=== PATIENT | female | born 1995 | race Caucasian/White ===

== ENCOUNTER 2022-08-05 09:52 | Outpatient (CLI) | payer OTHER, SELFPAY ==
[2022-08-05 13:50] LABS: Iron* 86 ug/dL (37-170)
[2022-08-05 14:00] LABS: Percent Iron Saturation 21 % (20-50); Total Iron Binding Capacity 407 ug/dL (265-497)
[2022-08-05 14:15] LABS: Vitamin D 25 Hydroxy* 41 ng/mL (30-80)
[2022-08-05 14:17] LABS: Chloride* 102 mmol/L (96-114); Potassium* 4.4 mmol/L (3.6-5.1); Sodium* 137 mmol/L (135-149)
[2022-08-05 14:20] LABS: Blood Urea Nitrogen* 10 mg/dL (5-24); Carbon Dioxide* 24 mmol/L (20-32); Creatinine* 0.5 mg/dL (0.5-1.5); Estimated Glomerular Filt Rate 133 ml/min
[2022-08-05 14:21] LABS: Calcium* 9.4 mg/dL (8.4-10.6); Glucose* 87 mg/dL (60-115)
[2022-08-05 14:23] LABS: C Reactive Protein* 0.6 mg/dL (0.5-1.0)
== END 2022-08-05 09:53 | disposition home or self-care (01) ==
PROVIDERS: PCP Nurse Practitioner Family; Visit Provider Nurse Practitioner Family
DX: Z01.419 Encounter for gynecological examination (general) (routine) without abnormal findings (principal); R53.83 Other fatigue; M54.9 Dorsalgia, unspecified
CPT/HCPCS: 80048; 82306; 83540; 83550; 84443; 86140

== ENCOUNTER 2022-08-07 11:22 | Emergency (ER) | payer OTHER, SELFPAY ==
[2022-08-07 11:40] VITALS: BP 117/75; PULSE 97; RESP 16; TEMP 36.4; O2SAT 98; BMI 23.3
--- NOTE | 2022-08-07 12:15 | ED.GENADULT ---
HPI - General Adult General Chief complaint: Rib Pain Stated complaint: Abdominal pain Time Seen by Provider: 08/07/22 11:40 History of Present Illness HPI narrative: This 26-year-old female comes in reporting left lateral lower rib pain that is reproducible when taking a deeper breath. She does not report any injury event or strenuous activity. These symptoms began about 4 days ago and have increased recently. She states that she is her 1-year-old child and sometimes has increased pain in her back and left ribs in the particular sitting position that she might be in at that time. She does not report any shortness of breath or fevers. She is otherwise in good health. She states that it feels like it something underneath her left lower anterior ribs. She does not describe any abdominal pain. Related Data Home Medications Medication Instructions Recorded Confirmed cetirizine 10 mg chewable tablet 10 mg PO DAILY 08/07/22 08/07/22 [id number] 1 mg tab PO 08/07/22 tablet Previous Rx's Medication Instructions Recorded ketorolac 10 mg tablet 10 mg PO Q8H 5 days #15 tabs 08/07/22 Allergies Allergy/AdvReac Type Severity Reaction Status Date / Time levofloxacin [From Levaquin] Allergy Verified 08/07/22 11:39 Review of Systems Status of ROS: Reports: 10 or more systems reviewed and unremarkable except as noted in History and below Narrative: Constitutional: No fevers, no weight gain or loss. Eyes: No discharge. No vision changes. HENT: No congestion, no sore throat, no ear pain. Cardiovascular: No palpitations. Chest: Left lower lateral rib pain which is reproducible with a deep breath. Respiratory: No shortness of breath, no wheezes, no cough. Gastrointestinal: No abdominal pain, no vomiting, no diarrhea. Genitourinary: No dysuria, no hematuria. Musculoskeletal: Normal range of motion. Skin: No rashes, no pruritis. Neurological: No dizziness, weakness, sensory change, speech change. Endo/Heme/Allergies: No bruising or bleeding. No polydipsia. Pysch: no suicidality, no anxiety, no insomnia. All other systems reviewed and are negative. PFSH PFSH Social History Smoking Status: Never smoker How often do you have a drink containing alcohol: 2-4 times a month AUDIT-C Alcohol total score: 2 Non-prescribed substance use: denies use Exam Narrative: Exam Narrative: Constitutional: Well-developed, well-nourished, no acute distress. HEENT: Normocephalic, atraumatic. Neck: Normal range of motion. Nontender. Supple. Heart: Regular. No murmurs. Normal rate. Intact distal pulses. Lungs: Clear to auscultation. No wheezes, rhonchi, or rales. Left lateral rib pain with taking a deep breath. Abdomen: Normal bowel sounds. Nontender. No rebound tenderness. I am able to palpate deeply throughout her abdomen without any pain. Genitalia: Deferred. Back: No midline tenderness. Normal range of motion. Extremities: Normal range of motion. No injury. Skin: Intact. No rash. Warm. No erythema or pallor. Neurologic: No altered sensation. No weakness. Alert and oriented. Psychiatric: No suicidality. No anxiety or depression. No insomnia. Nursing notes and vitals signs are reviewed. Const: Vital Signs, click to edit/add: Vital Signs - 24 hr 08/07/22 11:40 Temperature 97.6 F Pulse Rate [Right Pulse Oximeter] 97 Respiratory Rate 16 Blood Pressure [Ri ght Upper Arm] 117/75 Pulse Oximetry 98 Oxygen Delivery Me thod Room Air Course Vital Signs Vital signs: Initial Vital Signs Temperature 97.6 F 08/07/22 11:40 Temperature Source Temporal Artery Scan 08/07/22 11:40 Pulse Rate 97 08/07/22 11:40 Respiratory Rate 16 08/07/22 11:40 Blood Pressure 117/75 08/07/22 11:40 Blood Pressure Mean 89 08/07/22 11:40 Blood Pressure Position Sitting 08/07/22 11:40 Pulse Oximetry 98 08/07/22 11:40 Oxygen Delivery Method 08/07/22 11:40 Vital Signs Temperature 97.6 F 08/07/22 11:40 Pulse Rate 97 08/07/22 11:40 Respiratory Rate 16 08/07/22 11:40 Blood Pressure 117/75 08/07/22 11:40 Pulse Oximetry 98 08/07/22 11:40 Oxygen Delivery Method 08/07/22 11:40 Temperature 97.6 F 08/07/22 11:40 Pulse Rate 97 08/07/22 11:40 Respiratory Rate 16 08/07/22 11:40 Blood Pressure 117/75 08/07/22 11:40 Pulse Oximetry 98 08/07/22 11:40 Oxygen Delivery Method 08/07/22 11:40 Medical Decision Making MDM Narrative Medical decision making narrative: This 26-year-old female comes in reporting left lower anterior rib pain that is worse when taking a deep breath and is also worsened when in certain positions. At time she feels pain also in her back at the same level. She states that she does have history of some back pains. I discussed lab and imaging options with the patient and she agreed to have an ultrasound to look at her left upper quadrant abdomen. This was done by me at the bedside and yielded normal anatomy. Her pain is reproducible with deep breathing indicating and pleuritic or chest wall type of pain. She did receive a rib belt which brought some relief to her symptoms. A prescription for Toradol as also provided. Discharge Plan Discharge Clinical Impression: Acute chest wall pain Patient Disposition: Home, Self-Care Condition: Stable Additional Instructions: Wear rib belt as needed. Take medication also as needed and indicated. Follow up with MD or return if worsening. Prescriptions: New ketorolac 10 mg tablet 10 mg PO Q8H 5 Days Qty: 15 0RF No Action cetirizine 10 mg tablet,chewable 10 mg PO DAILY [id number]-[id number] 1 mg tablet PO Follow Up/Referrals: Mariella Robertson, MÓNICA, ASSISTANT [employer]OR [employer] [Primary Care Provider] - Stand Alone Forms: [facility] Info Instructions Procedures Ultrasound Other exam #1: Anatomical areas examined: Left upper quadrant abdomen including left kidney and spleen. Left long. Indications: Left lower rib pain. Exam type: focused emergency ultrasound Description/findings: Normal appearing left kidney and spleen. Normal lung function in the left lung.
== END 2022-08-07 12:54 | disposition home or self-care (01) ==
PROVIDERS: Emergency Provider Emergency Medicine Emergency Medical Services; PCP Nurse Practitioner Family
DX: R07.89 Other chest pain (principal)
CPT/HCPCS: 76604; 99284

== ENCOUNTER 2023-01-06 14:21 | Emergency (ER) | payer OTHER, SELFPAY ==
[2023-01-06 14:40] VITALS: BP 122/81; PULSE 104; RESP 16; TEMP 36.9; O2SAT 100; BMI 22.5
--- NOTE | 2023-01-06 14:45 | CRLHL7_ITS ---
For Patients: As a result of the Century Cures Act, medical imaging exams and procedure reports are released immediately into your electronic medical record. You may view this report before your referring provider. If you have questions, please contact your health care provider. INDICATION: Rt leg painimages: 28 TECHNIQUE: Ultrasound venous duplex right lower extremity. COMPARISON: None. FINDINGS: The right common femoral, superficial femoral, deep femoral, popliteal, posterior tibial, and greater saphenous veins are fully compressible with normal waveforms. IMPRESSION: Normal ultrasound of the right lower extremity veins. Dictated by: Alexander Mina MD @ 01/06/2023 16:09:56 (Electronically Signed)
--- NOTE | 2023-01-06 14:46 | ED_ITS ---
HPI - General Adult General Chief complaint: Extremity Pain/Injury, Lower Stated complaint: 7 weeks , possible blood clot R leg Time Seen by Provider: 01/06/23 14:35 History of Present Illness HPI narrative: Pt is a 27 year old who is 7 weeks who presents with several days of pain without swelling in the right lower extremity. Pt has no history of clotting disorders and has not had any blood clots or miscarriages. Pt has no SOB, nausea, vomiting or abd pain. Pt did have some mild spotting from the vagina several days ago but none recently. Pt otherwise feels well. Discomfort is mild and not associated with any swelling or bruising. Related Data Home Medications Medication Instructions Recorded Confirmed cetirizine 10 mg tablet (Zyrtec) 10 mg PO QDAY PRN 08/05/22 08/05/22 prenat.vits,nadia,liw-cjuz-xcqqw 1 tab PO QDAY 08/05/22 08/05/22 cetirizine 10 mg chewable tablet 10 mg PO DAILY 08/07/22 08/07/22 [id number] 1 mg tab PO 08/07/22 tablet Previous Rx's Medication Instructions Recorded ketorolac 10 mg tablet 10 mg PO Q8H 5 days #15 tabs 08/07/22 sulfamethoxazole 800 1 tab PO BID #14 tabs 11/01/22 mg-trimethoprim 160 mg tablet (Bactrim DS) Allergies Allergy/AdvReac Type Severity Reaction Status Date / Time levofloxacin [From Levaquin] Allergy Unverified 08/07/22 11:39 Levofloxacin Allergy Unknown Uncoded 08/05/22 09:23 Review of Systems Status of ROS: Reports: 10 or more systems reviewed and unremarkable except as noted in History and below [facility] Medical History History of renal calculi Lower abdominal pain Surgical History History of extraction of renal calculus (2018) Status post primary low transverse section Family History Unknown Cervical cancer Social History Smoking Status: Never smoker Do you use any of these nicotine containing products: None Second hand tobacco smoke exposure: No How often do you have a drink containing alcohol: never How often do you have six or more drinks on one occasion: Never AUDIT-C Alcohol total score: 0 Non-prescribed substance use: denies use service: No Exam Narrative: Exam Narrative: EXAM GENERAL: Patient appears comfortable and well. EYES: No scleral icterus. LYMPH: No supraclavicular or cervical lymphadenopathy. SKIN: Visible skin seen during exam normal or with benign process only. EXT: No dependent lower extremity pedal edema. No pain to palpation no obvious deformities right lower extremity. HEART: Regular rate and rhythm with no murmurs, rubs, or gallops. LUNGS: Clear to auscultation bilaterally with no crackles or wheezes. ABD: Soft, non tender, non distended. PSYCH: Good eye contact, speech is not pressured. Const: Vital Signs, click to edit/add: Vital Signs - 24 hr 01/06/23 14:40 Temperature 98.5 F Pulse Rate [Pulse Oximeter] 104 H Respiratory Rate 16 Blood Pressure [Ri t Upper Arm] 122/81 Pulse Oximetry 100 Oxygen Delivery Me thod Room Air Course Course Hospital Course: Pt seen and examined. Venous Duplex of the right lower extremity ordered. Reevaluation(s) Reevaluation #1: Venous duplex negative for DVT. Time: 15:34 Vital Signs Vital signs: Initial Vital Signs Temperature 98.5 F 01/06/23 14:40 Temperature Source Temporal Artery Scan 01/06/23 14:40 Pulse Rate 104 H 01/06/23 14:40 Pulse Rhythm 01/06/23 14:40 Pulse Strength 3+ Normal 01/06/23 14:40 Respiratory Rate 16 01/06/23 14:40 Blood Pressure 122/81 01/06/23 14:40 Blood Pressure Mean 94 01/06/23 14:40 Blood Pressure Position Sitting 01/06/23 14:40 Pulse Oximetry 100 01/06/23 14:40 Oxygen Delivery Method 01/06/23 14:40 Vital Signs Temperature 98.5 F 01/06/23 14:40 Pulse Rate 104 H 01/06/23 14:40 Respiratory Rate 16 01/06/23 14:40 Blood Pressure 122/81 01/06/23 14:40 Pulse Oximetry 100 01/06/23 14:40 Oxygen Delivery Method 01/06/23 14:40 Temperature 98.5 F 01/06/23 14:40 Pulse Rate 104 H 01/06/23 14:40 Respiratory Rate 16 01/06/23 14:40 Blood Pressure 122/81 01/06/23 14:40 Pulse Oximetry 100 01/06/23 14:40 Oxygen Delivery Method 01/06/23 14:40 Medical Decision Making MDM Narrative Medical decision making narrative: Pt is a 27 year old woman who is 7 weeks with her second child who present with pain and fullness in the right leg. Pts venous duplex negative for DVT. Pt otherwise feeling fine. Would like to go home with outpt follow up and continued care which I think is reasonable. Differential Diagnosis Differential Diagnosis: DVT, Hematoma, muscle cramp, dehydration, ligamentous injury Discharge Plan Discharge Clinical Impression: Cramp in lower leg Condition: Stable Instructions: Leg Cramps (ED) Additional Instructions: Good hydration Continue current medications Follow up with Ob as needed Activity Level: No Restrictions Discharge Diet: Regular Prescriptions: No Action cetirizine [Zyrtec] 10 mg tablet 10 mg PO QDAY PRN prenat.vits,nadia,maa-avde-ejkgw Tablet 1 tab PO QDAY cetirizine 10 mg tablet,chewable 10 mg PO DAILY [id number]-[id number]-FA 1 mg tablet PO ketorolac 10 mg tablet 10 mg PO Q8H 5 Days Qty: 15 0RF sulfamethoxazole-trimethoprim [Bactrim DS] 800-160 mg tablet 1 tab PO BID Qty: 14 0RF Follow Up/Referrals: Kenya Obando, [employer]IPPING [employer]AD [Primary Care Provider] - Stand Alone Forms: [facility] Info Instructions
== END 2023-01-06 15:43 | disposition home or self-care (01) ==
PROVIDERS: Emergency Provider Internal Medicine; PCP Nurse Practitioner Family
DX: R10.31 Right lower quadrant pain (principal); Z3A.01 Less than 8 weeks gestation of pregnancy
CPT/HCPCS: 93971; 99283

== ENCOUNTER 2023-01-24 11:59 | Outpatient (CLI) | payer OTHER, SELFPAY ==
--- NOTE | 2023-01-24 12:15 | CRLHL7_ITS ---
For Patients: As a result of the Century Cures Act, medical imaging exams and procedure reports are released immediately into your electronic medical record. You may view this report before your referring provider. If you have questions, please contact your health care provider. INDICATION: First trimester scan, establish dates. COMPARISON: None. TECHNIQUE: Real-time reese-scale imaging of the pelvis was performed. FINDINGS: Sonographic imaging demonstrates a single living intrauterine gestation. The embryo demonstrates a regular cardiac rate measuring 171 beats per minute. The embryo`s crown-rump length measurement of 2.9 cm corresponds to a gestational age of 9 weeks 5 days with a sonographic due date of August 24, 2023. There is a normal-appearing yolk sac measuring 3.3 mm. There are no gross abnormalities noted within the embryo at this early state of development. The placenta has not yet developed. The gestational sac has a normal appearance and there is no evidence of a perigestational hemorrhage. The amount of fluid within the sac appears appropriate for gestational age. The cervix is closed. The myometrium appears normal. The ovaries are of normal size. The right ovary measures 2.6 x 1.5 x 2.5 cm. The left ovary measures 2.8 x 2.0 x 2.2 cm. There are no suspicious fluid collections noted in the cul-de-sac. IMPRESSION: Normal first trimester OB ultrasound exam. Gestational age calculated at 9 weeks 5 days with a sonographic due date of August 24, 2023. Dictated by Brennan Hernandez MD @ 01/24/2023 5:49:19 PM (Electronically Signed)
== END 2023-01-24 12:00 | disposition home or self-care (01) ==
LOC: US 12:00
PROVIDERS: PCP Nurse Practitioner Family; Visit Provider Physician Assistant
DX: Z34.91 Encounter for supervision of normal pregnancy, unspecified, first trimester (principal); Z3A.09 9 weeks gestation of pregnancy
CPT/HCPCS: 76817

== ENCOUNTER 2023-01-24 13:06 | Outpatient (CLI) | payer OTHER, SELFPAY ==
[2023-01-24 16:11] LABS: HIV 1/2/P24 Combo Screen* Negative (Negative)
[2023-01-24 17:45] LABS: Hepatitis B Surface Antigen* Negative (Negative)
[2023-01-24 18:03] LABS: Hepatitis C Virus Antibody* Negative (Negative)
[2023-01-24 18:47] LABS: Chlamydia DNA Amplified* NOT DETECTED (No Detected); GC DNA Amplified* NOT DETECTED (No Detected)
[2023-01-26 23:31] LABS: Varicella-Zoster Virus Ab, IgG 251.7 IV
[2023-01-26 23:34] LABS: Rubella Antibody IgG 14.9 IU/mL
[2023-01-27 01:38] LABS: Rapid Plasma Reagin (RPR) Non Reactive (Non Reactive)
== END 2023-01-24 13:07 | disposition home or self-care (01) ==
PROVIDERS: PCP Nurse Practitioner Family; Visit Provider Physician Assistant
DX: Z34.91 Encounter for supervision of normal pregnancy, unspecified, first trimester (principal); Z3A.09 9 weeks gestation of pregnancy
CPT/HCPCS: 86592; 86703; 86762; 86787; 86803; 86850; 86900; 86901; 87086; 87340; 87491; 87591

== ENCOUNTER 2023-04-05 15:43 | Emergency (ER) | payer OTHER, SELFPAY ==
[2023-04-05 15:46] VITALS: BP 108/72; PULSE 100; RESP 16; TEMP 36.6; O2SAT 99; BMI 23.5
[2023-04-05] MEDS: 0.9 % SODIUM CHLORIDE 1000 ml 1,000 ML IV (16:21)
[2023-04-05] MEDS: ONDANSETRON 2 MG/ML inj 4 MG IVP (16:21)
[2023-04-05 16:50] VITALS: BP 99/58; PULSE 92; O2SAT 98
--- NOTE | 2023-04-05 17:05 | ED.GENADULT ---
HPI - General Adult General Date Seen: 04/05/23 Chief complaint: Weakness Stated complaint: Vomiting, 19 weeks Time Seen by Provider: 04/05/23 16:01 Source: patient Mode of arrival: ambulatory Limitations: no limitations History of Present Illness HPI narrative: Patient is a 27-year-old at 19 weeks gestation who was in her usual state of health until this morning. Her toddler had some vomiting and diarrhea that she cleaned up. She then went to her ultrasound and on the way home began having nausea and vomiting. She has thrown up numerous times and cannot keep any fluids down. She has some general weakness and some lower abdominal discomfort. No dysuria, urgency, frequency. No vaginal bleeding. Her ultrasound was completely normal. She is feeling movement. No fevers or chills. Related Data Home Medications Medication Instructions Recorded Confirmed prenat.vits,nadia,dwa-mmqs-zzovk 1 tab PO QDAY 08/05/22 02/23/23 ascorbate calcium (vitamin C) 500 500 mg PO QDAY 01/24/23 02/23/23 mg tablet cholecalciferol (vitamin D3) 25 25 mcg PO QDAY 01/24/23 02/23/23 mcg (1,000 unit) capsule Previous Rx's Medication Instructions Recorded ondansetron 8 mg disintegrating 8 mg PO TID PRN nausea and 04/05/23 tablet vomiting #20 tabs Allergies Allergy/AdvReac Type Severity Reaction Status Date / Time levofloxacin [From Levaquin] Allergy Verified 04/05/23 15:46 Review of Systems Narrative: Review of systems is outlined above otherwise noted to be negative. [facility] PFSH Medical History Depression History of renal calculi Lower abdominal pain Surgical History History of extraction of renal calculus (2018) Status post primary low transverse section Family History Unknown Cervical cancer Social History Smoking Status: Never smoker Do you use any of these nicotine containing products: None Second hand tobacco smoke exposure: No How often do you have a drink containing alcohol: never How often do you have six or more drinks on one occasion: Never AUDIT-C Alcohol total score: 0 Non-prescribed substance use: denies use Little interest or pleasure in doing things: not at all Feeling down, depressed, or hopeless: not at all service: No Exam Narrative: Exam Narrative: Vitals noted. HEENT: Conjunctiva clear. Tympanic membranes are pearly white bilaterally. Posterior pharynx is clear without erythema or exudate. Neck is supple without adenopathy. Lungs: Clear to auscultation in all [place]. No wheezes, rales, rhonchi. Heart: Regular rate and rhythm without murmur. Abdomen: Soft and nontender. No guarding, rigidity, rebound. Bowel sounds are normal. No palpable masses. Extremities: No cyanosis or edema. Good distal pulses. Skin: No abnormalities noted of the exposed skin. Neurologic: Awake, alert, fully oriented. Neurologic exam is nonfocal. Const: Vital Signs, click to edit/add: Vital Signs - 24 hr 04/05/23 15:46 04/05/23 16:50 Temperature 97.9 F Pulse Rate [Right Pulse Oximeter] 100 92 Respiratory Rate 16 Blood Pressure [Ri ght Upper Arm] 108/72 99/58 L Pulse Oximetry 99 98 Oxygen Delivery Me thod Room Air Room Air Course Course Hospital Course: Patient was seen and examined. IV is established and she is given a L of normal saline. She is given Zofran 4 mg IV to help with nausea. Reevaluation(s) Reevaluation #1: After the IV fluids and Zofran her nausea has completely resolved. She had no further vomiting. She feels well and is ready to go home. Vital Signs Vital signs: Initial Vital Signs Temperature 97.9 F 04/05/23 15:46 Temperature Source Temporal Artery Scan 04/05/23 15:46 Pulse Rate 100 04/05/23 15:46 Pulse Rhythm Regular 04/05/23 15:46 Pulse Strength 3+ Normal 04/05/23 15:46 Respiratory Rate 16 04/05/23 15:46 Blood Pressure 108/72 04/05/23 15:46 Blood Pressure Mean 84 04/05/23 15:46 Blood Pressure Position Sitting 04/05/23 15:46 Pulse Oximetry 99 04/05/23 15:46 Oxygen Delivery Method Room Air 04/05/23 15:46 Vital Signs Temperature 97.9 F 04/05/23 15:46 Pulse Rate 100 04/05/23 15:46 Respiratory Rate 16 04/05/23 15:46 Blood Pressure 108/72 04/05/23 15:46 Pulse Oximetry 99 04/05/23 15:46 Oxygen Delivery Method Room Air 04/05/23 15:46 Temperature 97.9 F 04/05/23 15:46 Pulse Rate 92 04/05/23 16:50 Respiratory Rate 16 04/05/23 15:46 Blood Pressure 99/58 L 04/05/23 16:50 Pulse Oximetry 98 04/05/23 16:50 Oxygen Delivery Method Room Air 04/05/23 16:50 Discharge Plan Discharge Clinical Impression: Vomiting Patient Disposition: Home, Self-Care Condition: Improved Additional Instructions: Rest, push fluids, Zofran for nausea, Tylenol for cramps. Follow up if no better in 2-3 days. Prescriptions: New ondansetron 8 mg tablet,disintegrating 8 mg PO TID PRN (Reason: nausea and vomiting) Qty: 20 0RF No Action prenat.vits,nadia,jah-ckbu-topwa Tablet 1 tab PO QDAY ascorbate calcium (vitamin C) 500 mg tablet 500 mg PO QDAY cholecalciferol (vitamin D3) 25 mcg (1,000 unit) capsule 25 mcg PO QDAY Follow Up/Referrals: Kenya Obando [employer] [Primary Care Provider] - Stand Alone [facility] Info Inst[facility]
== END 2023-04-05 17:24 | disposition home or self-care (01) ==
PROVIDERS: Emergency Provider Family Medicine; PCP Nurse Practitioner Family
DX: R11.10 Vomiting, unspecified (principal); Z3A.19 19 weeks gestation of pregnancy
CPT/HCPCS: 96374; 99282; 99283; J2405; J7030

== ENCOUNTER 2023-04-06 03:46 | Emergency (ER) | payer OTHER, SELFPAY ==
--- NOTE | 2023-04-06 03:50 | ED.GENADULT ---
HPI - General Adult General Time Seen by Provider: 03:51 Date Seen: 04/06/23 Chief complaint: Urogenital Problems, Female Stated complaint: Back pain, unable to urinate, 19 weeks prego Time Seen by Provider: 04/06/23 03:48 Source: patient, RN notes reviewed and old records reviewed Mode of arrival: ambulatory Limitations: no limitations History of Present Illness HPI narrative: 27-year-old female currently 19+ 5 weeks, who comes in today with difficulty urinating. Patient was seen about 10 hours ago with nausea vomiting, family member at home had a gastrointestinal illness. That time patient was given fluids and Zofran with improvement of symptoms with discharge. She had an ultrasound today which showed normal intrauterine . Presents tonight with difficulty urinating. Says she feels like she needs to urinate but only gets a couple of drops out. Also some low back pain. No flank pain. No fevers or chills. Has a history of pyelonephritis as well as kidney stones says this feels different. Related Data Home Medications Medication Instructions Recorded Confirmed prenat.vits,nadia,[id number] 1 tab PO QDAY 08/05/22 04/06/23 ascorbate calcium (vitamin C) 500 500 mg PO QDAY 01/24/23 04/06/23 mg tablet cholecalciferol (vitamin D3) 25 25 mcg PO QDAY 01/24/23 04/06/23 mcg (1,000 unit) capsule aspirin 81 mg capsule 81 mg PO QDAY 04/06/23 04/06/23 Previous Rx's Medication Instructions Recorded ondansetron 8 mg disintegrating 8 mg PO TID PRN nausea and 04/05/23 tablet vomiting #20 tabs Allergies Allergy/AdvReac Type Severity Reaction Status Date / Time levofloxacin [From Levaquin] Allergy Verified 04/06/23 14:23 Review of Systems Status of ROS: Reports: 10 or more systems reviewed and unremarkable except as noted in History and below PFSH PFSH Medical History Depression History of renal calculi Lower abdominal pain Surgical History History of extraction of renal calculus (2018) Status post primary low transverse section Family History Unknown Cervical cancer Social History Smoking Status: Never smoker Do you use any of these nicotine containing products: None Second hand tobacco smoke exposure: No How often do you have a drink containing alcohol: never How often do you have six or more drinks on one occasion: Never AUDIT-C Alcohol total score: 0 Non-prescribed substance use: denies use Little interest or pleasure in doing things: not at all Feeling down, depressed, or hopeless: not at all service: No Exam Narrative: Exam Narrative: General: Well-developed and well-nourished, no acute distress Head: Atraumatic and normocephalic Eyes: Pupils are equal reactive, extraocular motions intact, conjunctiva clear ENT: External nose and ears are normal, posterior pharynx without erythema or exudate Neck: No midline cervical tenderness, full spontaneous range of motion the neck, trachea midline, no adenopathy Heart: Tachycardic but regular Lungs: Clear to auscultation bilaterally without wheezes or crackles Abdomen: Soft, nontender, gravid and mildly distended Musculoskeletal: No tenderness, deformity, or edema Neurologic: Awake, alert, and oriented x3, no gross focal neurologic deficits, cranial nerves intact as tested Psych: Mood and affect are appropriate Skin: No rashes Const: Vital Signs, click to edit/add: Vital Signs - 24 hr 04/06/23 03:52 04/06/23 05:31 Temperature 97.6 F Pulse Rate [Pulse Oximeter] 114 H 105 H Respiratory Rate 18 18 Blood Pressure [Le ft Upper Arm] 115/72 103/78 Pulse Oximetry 97 100 Oxygen Delivery Me thod Room Air Room Air Course Course Hospital Course: Patient seen examined, prior records reviewed. Patient almost 20 weeks , presents with urinary frequency and sensation of bladder fullness. On exam, suprapubic tenderness and tachycardia, appears uncomfortable. Afebrile. Concern for possible urinary retention associated with , also consider urinary tract infection, kidney stone less likely. Labs, bladder scan are ordered. Reevaluation(s) Reevaluation #1: Initial bladder scan 320, postvoid residual 317. Basic panel independently interpreted by me demonstrates mild hyponatremia, potassium normal, creatinine is normal. Time: 04:37 Reevaluation #2: Labs independently interpreted by me demonstrate normal white blood cell count. Urinalysis with 3+ ketones and 2+ blood although no red blood cells. Due to history of kidney stones and urinary discomfort with flank pain, renal ultrasound is ordered to evaluate for hydronephrosis and possible ureteral obstruction. Time: 04:45 Reevaluation #3: Care discussed with Dr. Palacios, Depalletizer Operator who agrees with plan for catheter. Time: 05:06 Additional Reevaluation(s): 6:02 a.m. renal and bladder ultrasound with mild hydronephrosis on the right, bladder jets bilaterally. Also noted to have normal postvoid residual and patient feels like she is emptying better. Discussed deferring urinary catheter for now. Watch patient little longer, make sure she avoids again and if able to void, will not place catheter. Vital Signs Vital signs: Initial Vital Signs Temperature 97.6 F 04/06/23 03:52 Temperature Source Temporal Artery Scan 04/06/23 03:52 Pulse Rate 114 H 04/06/23 03:52 Respiratory Rate 18 04/06/23 03:52 Blood Pressure 115/72 04/06/23 03:52 Blood Pressure Mean 86 04/06/23 03:52 Pulse Oximetry 97 04/06/23 03:52 Oxygen Delivery Method Room Air 04/06/23 03:52 Vital Signs Temperature 97.6 F 04/06/23 03:52 Pulse Rate 114 H 04/06/23 03:52 Respiratory Rate 18 04/06/23 03:52 Blood Pressure 115/72 04/06/23 03:52 Pulse Oximetry 97 04/06/23 03:52 Oxygen Delivery Method Room Air 04/06/23 03:52 Temperature 97.6 F 04/06/23 03:52 Pulse Rate 105 H 04/06/23 06:49 Respiratory Rate 18 04/06/23 06:49 Blood Pressure 95/57 L 04/06/23 06:49 Pulse Oximetry 100 04/06/23 06:49 Oxygen Delivery Method Room Air 04/06/23 06:49 Medical Decision Making Medical Records Medical records reviewed: Yes I reviewed the patient's medical records Lab Data Lab results reviewed: Yes I reviewed the patient's lab results Labs: Lab Results 04/06/23 Range/Units 04:15 WBC 9.85 (4.50-11.00) K/uL RBC 4.20 (4.00-5.20) m/uL Hgb 12.9 (12.0-16.0) gm/dL Hct 38.1 (33.0-51.0) % MCV 91 (80-100) fL MCH 31 (26-34) pg MCHC 34 (32-36) gm/dL RDW Coeff of Dae 13.1 (11.5-15.5) % Plt Count 222 (140-440) K/uL Neut % (Auto) 88.1 H (42.0-72.0) % Lymph % (Auto) 7.5 L (20-44) % [place] % (Auto) 2.9 (0.0-11.0) % Eos % (Auto) 0.0 (0.0-7.0) % Baso % (Auto) 0.2 (0.0-3.0) % Neut # (Auto) 8.70 H (1.7-7.0) K/uL Lymph # (Auto) 0.70 L (0.90-2.90) K/uL [place] # (Auto) 0.30 (0.00-0.90) K/UL Eos # (Auto) 0.00 (0.00-0.50) K/uL Baso # (Auto) 0.02 (0.00-0.30) K/uL Sodium 131 L (135-149) mmol/L Potassium 4.0 (3.6-5.1) mmol/L Chloride 105 (96-114) mmol/L Carbon Dioxide 19 L (20-32) mmol/L BUN 9 (5-24) mg/dL Creatinine 0.5 (0.5-1.5) mg/dL Estimated Creat Clear 152.08 Estimated GFR 132 ml/min Glucose 116 H (60-115) mg/dL Calcium 8.2 L (8.4-10.6) mg/dL Urine Color Yellow (Yellow) Urine Appearance Clear (Clear) Urine pH 6.0 (5.0-8.5) Ur Specific [place] 1.025 (1.000-1.030) Urine Protein Negative (Negative) Urine Glucose (UA) Negative (Negative) Urine Ketones 3+ A (Negative) Urine Blood 2+ A (Negative) Urine Nitrite Negative (Negative) Urine Bilirubin Negative (Negative) Urine Urobilinogen 0.2 (0.2-1.0) Ur Leukocyte Esterase Negative (Negative) Urine RBC 0-2 (0-2) Urine WBC 0-2 (0-5) Ur Squamous Epith Cells Few (None-Few) Urine Bacteria None (None) Discharge Plan Discharge Clinical Impression: 19 weeks gestation of , Acute urinary retention Patient Disposition: Home, Self-Care Condition: Stable Instructions: Acute Urinary Retention in Women (ED) Additional Instructions: Call your green plumber in the morning to discuss further care and catheter removal in 5-7 days if this has been placed in the ED Activity Level: Activity as Tolerated Discharge Diet: Regular Prescriptions: No Action prenat.vits,nadia,[id number] Tablet 1 tab PO QDAY aspirin 81 mg capsule 81 mg PO QDAY ascorbate calcium (vitamin C) 500 mg tablet 500 mg PO QDAY cholecalciferol (vitamin D3) 25 mcg (1,000 unit) capsule 25 mcg PO QDAY ondansetron 8 mg tablet,disintegrating 8 mg PO TID PRN (Reason: nausea and vomiting) Qty: 20 0RF Follow Up/Referrals: Kenya Obando AIR CONDITIONER INSTALLER HELPER [Primary Care Provider] - Stand Alone Forms: [employer] [facility] Info Instructions
[2023-04-06 03:52] VITALS: BP 115/72; PULSE 114; RESP 18; TEMP 36.4; O2SAT 97; BMI 23.5
--- NOTE | 2023-04-06 04:13 | ED.NURSE ---
Patient bladder scanned for 320.
[2023-04-06 04:26] LABS: Chloride* 105 mmol/L (96-114)
[2023-04-06 04:27] LABS: Sodium* 131 mmol/L (135-149)
[2023-04-06 04:29] LABS: Creatinine* 0.5 mg/dL (0.5-1.5); Est. Creatinine Clearance* 152.08; Estimated Glomerular Filt Rate 132 ml/min
[2023-04-06 04:30] LABS: Blood Urea Nitrogen* 9 mg/dL (5-24); Calcium* 8.2 mg/dL (8.4-10.6); Carbon Dioxide* 19 mmol/L (20-32); Glucose* 116 mg/dL (60-115)
[2023-04-06 04:33] LABS: Appearance Urine Clear (Clear); Bilirubin Urine Negative (Negative); Blood Urine 2+ (Negative); Color Urine Yellow (Yellow); Glucose Urine Negative (Negative); Ketones Urine 3+ (Negative); Leukocyte Esterase Urine Negative (Negative); Nitrite Urine Negative (Negative); Protein Urine Negative (Negative); Specific Gravity Urine 1.025 (1.000-1.030); Urobilinogen Urine 0.2 (0.2-1.0)
--- NOTE | 2023-04-06 04:37 | ED.NURSE ---
Post void 317ml.
[2023-04-06 04:40] LABS: Basophils Absolute Auto 0.02 K/uL (0.00-0.30); Basophils Percent Auto 0.2 % (0.0-3.0); Hematocrit 38.1 % (33.0-51.0); Hemoglobin* 12.9 gm/dL (12.0-16.0); Immature Granulocytes Abs Auto 0.13 K/uL (0.00-0.30); Immature Granulocytes Pct Auto 1.3 %; Lymphocytes Percent Auto 7.5 % (20-44); Mean Corpuscular HGB Conc 34 gm/dL (32-36); Mean Corpuscular Hemoglobin 31 pg (26-34); Mean Corpuscular Volume 91 fL (80-100); Monocytes Percent Auto 2.9 % (0.0-11.0); Neutrophils Percent Auto 88.1 % (42.0-72.0); Platelet Count* 222 K/uL (140-440); RBC Urine 0-2 (0-2); RDW Coefficient of Variation % 13.1 % (11.5-15.5); Squamous Epithelial Cell Urine Few (None-Few); WBC Urine 0-2 (0-5); White Blood Count* 9.85 K/uL (4.50-11.00)
[2023-04-06 04:41] LABS: Slide Review Reflex No
--- NOTE | 2023-04-06 04:44 | CRLHL7_ITS ---
For Patients: As a result of the Cures Act, medical imaging exams and procedure reports are released immediately into your electronic medical record. You may view this report before your referring provider. If you have questions, please contact your health care provider. Indication: Eighteen weeks . Urinary retention. Back pain. Technique: Sonography of the kidneys and the bladder was performed as described below Comparison: None Findings: Right kidney: 11.5 x 4.4 x 5.6 centimeters. Cortex normal 1.5 centimeters. No stones or mass. Left kidney: 12.0 x 4.6 x 5.2 centimeters. Cortex normal 1.3 centimeters. No stones or mass. Mild right hydronephrosis is noted. The ureters cannot be followed due to bowel gas. Bilateral ureteral jets were observed within the bladder Impression: Mild right hydronephrosis. Bilateral ureteral jets were observed in the bladder Dictated by Jesus Jose MD @ 04/06/2023 6:22:28 AM (Electronically Signed)
[2023-04-06] MEDS: 0.9 % SODIUM CHLORIDE 1000 ml 1,000 ML IV (04:52)
[2023-04-06] MEDS: ONDANSETRON 2 MG/ML inj 4 MG IVP (04:57)
[2023-04-06 05:31] VITALS: BP 103/78; PULSE 105; RESP 18; O2SAT 100
--- NOTE | 2023-04-06 06:06 | ED.NURSE ---
Patient reported voiding in ultrasound. Per MD will hold off on catheter for now. Continue IVF and oral intake.
--- NOTE | 2023-04-06 06:48 | ED.NURSE ---
Patient was able to void 275ml.
[2023-04-06 06:49] VITALS: BP 95/57; PULSE 105; RESP 18; O2SAT 100
== END 2023-04-06 06:50 | disposition home or self-care (01) ==
PROVIDERS: Emergency Provider Family Medicine; PCP Nurse Practitioner Family
DX: R33.9 Retention of urine, unspecified (principal); Z33.1 Pregnant state, incidental; Z3A.19 19 weeks gestation of pregnancy
CPT/HCPCS: 36415; 51798; 76770; 80048; 81001; 85025; 96361; 96374; 99284; 99285; J2405; J7030

== ENCOUNTER 2023-06-06 08:38 | Outpatient (CLI) | payer OTHER, SELFPAY | END 2023-06-06 08:39 | disposition home or self-care (01) | LOC: NFLDREF 06-08 06:46 | PROVIDERS: PCP Nurse Practitioner Family; Referring Provider Nurse Practitioner Family; Visit Provider Obstetrics & Gynecology | DX: Z34.90 Encounter for supervision of normal pregnancy, unspecified, unspecified trimester (principal) | CPT/HCPCS: 86592 ==

== ENCOUNTER 2023-06-13 08:10 | Outpatient (CLI) | payer OTHER, SELFPAY | END 2023-06-13 08:11 | disposition home or self-care (01) | LOC: NFLDREF 09:46 | PROVIDERS: PCP Nurse Practitioner Family; Referring Provider Nurse Practitioner Family; Visit Provider Obstetrics & Gynecology | DX: Z34.90 Encounter for supervision of normal pregnancy, unspecified, unspecified trimester (principal) | CPT/HCPCS: 82951; 82952 ==

== ENCOUNTER 2023-07-20 07:10 | Outpatient (CLI) | payer OTHER, SELFPAY ==
--- NOTE | 2023-07-20 07:15 | CRLHL7_ITS ---
For Patients: As a result of the Century Cures Act, medical imaging exams and procedure reports are released immediately into your electronic medical record. You may view this report before your referring provider. If you have questions, please contact your health care provider. INDICATION: Third trimester for interval growth. FINDINGS: There is a single living intrauterine identified in vertex position. There is good cardiac activity with a heart rate of 139 beats per minute. Amniotic fluid volume is within normal limits with a single deep pocket of 5.4 cm. Placenta location is anterior. Biparietal diameter is 9.2 cm, 37 weeks +3 days. Head circumference 33.5 cm, 38 weeks +3 days. Abdominal circumference 33.0 cm, 37 weeks +0 days. Femur length 7.0 cm, 36 weeks +0 days. The composite gestational age is 37 weeks +2 days with an estimated date of confinement of 08/08/2023. Estimated weight is 3067 g in the 95th percentile. IMPRESSION: Near term single living intrauterine is identified in the vertex position. There is good cardiac activity. Normal amniotic fluid volume is noted. The composite gestational age is 37 weeks +2 days with an estimated date of confinement of 08/08/2023. Dictated by Jewel Pearl MD @ 07/22/2023 11:35:00 AM (Electronically Signed)
== END 2023-07-20 07:11 | disposition home or self-care (01) ==
LOC: US 07:10
PROVIDERS: PCP Nurse Practitioner Family; Visit Provider Advanced Practice Midwife
DX: Z34.93 Encounter for supervision of normal pregnancy, unspecified, third trimester (principal); Z3A.37 37 weeks gestation of pregnancy
CPT/HCPCS: 76816

== ENCOUNTER 2023-07-29 09:40 | Outpatient (CLI) | payer OTHER, SELFPAY | END 2023-07-29 09:41 | disposition home or self-care (01) | LOC: NFLDREF 07-31 07:30 | PROVIDERS: PCP Nurse Practitioner Family; Referring Provider Nurse Practitioner Family; Visit Provider Advanced Practice Midwife | DX: Z34.93 Encounter for supervision of normal pregnancy, unspecified, third trimester (principal); O34.219 Maternal care for unspecified type scar from previous cesarean delivery; Z3A.36 36 weeks gestation of pregnancy | CPT/HCPCS: 87081; 87653 ==

== ENCOUNTER 2023-08-02 05:12 | Inpatient (IN) | payer OTHER, SELFPAY ==
[2023-08-02] VITALS (31 sets, daily range): BP systolic 90–126; BP diastolic 51–76; PULSE 84–113; RESP 16; TEMP 36.6–37.1; BMI 27.3
[2023-08-02] MEDS: LACTATED RINGERS 1000 ML 1,000 ML 125 ML IV ×2 (05:40→13:46)
[2023-08-02] MEDS: OXYTOCIN 30 unit/500 ML in NS 30 UNIT/500 ML BAG IVPB (05:40)
[2023-08-02 05:46] LABS: Basophils Absolute Auto 0.05 K/uL (0.00-0.30); Basophils Percent Auto 0.6 % (0.0-3.0); Eosinophils Absolute Auto 0.18 K/uL (0.00-0.50); Eosinophils Percent Auto 2.2 % (0.0-7.0); Hematocrit 38.6 % (33.0-51.0); Immature Granulocytes Abs Auto 0.06 K/uL (0.00-0.30); Immature Granulocytes Pct Auto 0.7 %; Lymphocytes Absolute Auto 2.23 K/uL (0.90-2.90); Lymphocytes Percent Auto 26.9 % (20-44); Mean Corpuscular HGB Conc 34 gm/dL (32-36); Mean Corpuscular Hemoglobin 30 pg (26-34); Mean Corpuscular Volume 90 fL (80-100); Monocytes Percent Auto 6.5 % (0.0-11.0); Neutrophils Absolute Auto 5.22 K/uL (1.7-7.0); Neutrophils Percent Auto 63.1 % (42.0-72.0); Platelet Count* 171 K/uL (140-440); RDW Coefficient of Variation % 13.9 % (11.5-15.5); Red Blood Count 4.29 m/uL (4.00-5.20); White Blood Count* 8.28 K/uL (4.50-11.00)
[2023-08-02 05:48] LABS: Slide Review Reflex No
--- NOTE | 2023-08-02 06:10 | P.OBHP_ITS ---
OB - H&P: HPI Labor/Induction History of Present Illness Date Seen: 08/02/23 Chief Complaint: Chelly is a 27 year old 2 para 1 at 36 4/7 weeks gestation by LMP, who presents with PROM of clear fluid that occurred at 5pm. She is a TOLAC. Chief complaint: Maternity : 2 Para: 1 Narrative: Chelly Becker is a 27 year old 2 para 1 at 36 4/7 weeks gestation by LMP, who presents with PROM of clear fluid that occurred at 5pm. She is a TOLAC. She desired to stay home as long as possible to try to rest and encourage labor there. She presented at 5 am. She reported minimal cramping/contractions at this time. She is supported by her , Usha. She denies any bleeding but continues to leak clear fluid. She denies any fevers. 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 Spouse: Usha. Daughter: Jake. Baby: [place] Gender 1. History of , indication * Nonreassuring heart rate secondary to a cardiac arrhythmia * Decided to try VTOLAC -Consent signed: 06/06/2023 -Growth US at 36 weeks: EFW 95% 2. History of depression 3. History of kidney stones 4. Elevated 1hr GTT: 161 on 06/06/2023 * 06/13/2023: 3 hour GTT: F 76, 1hr 139, 2hr 136, 3hr 79: All normal. Flu shot: completed Covid: completed and boosted Tdap: 06/20/2023 History of Present Dating criteria: based on LMP care: good care Ultrasounds: normal 1st trimester US and normal mid trimester US Narrative: First Trimester US: 01/24/2023 IMPRESSION: Normal first trimester OB ultrasound exam. Gestational age calculated at 9 weeks 5 days with a sonographic due date of August 24, 2023. Dictated by Brennan Hernandez MD @ 01/24/2023 5:49:19 PM Anatomy Scan: 04/05/2023: At [facility]. No anomalies noted, normal findings. Growth US 07/20/2023: IMPRESSION: Near term single living intrauterine is identified in the vertex position. There is good cardiac activity. Normal amniotic fluid volume is noted. The composite gestational age is 37 weeks +2 days with an estimated date of confinement of 08/08/2023. Dictated by Jewel Pearl MD @ 07/22/2023 11:35:00 AM Labs Blood type: O (+) positive Narrative: Lab Assessment Start: 08/02/23 05:20 Freq: ONCE Status: Complete Protocol: PC.OBGBS Activity Type Activity Date Activity User E-sign Co-sign Detail Recorded Client Recorded Date Recorded By Document 08/02/23 05:32 JAZLYN [id number] 08/02/23 05:33 JAZLYN 08/02/23 05:32 Lab Assessment GBS Status negative GBS Additional Criteria None No Treatment Needed OK Are Labs Available Yes Maternal Blood Type O Maternal RH Factor Positive Evaluate Maternal Rubella Immune Status Immune Hepatitis B Surface Antigen Negative Maternal HIV Status Negative Maternal Syphillis (RPR) Status Negative Review of Systems Status of ROS: Reports: 10 or more systems reviewed and unremarkable except as noted in History and below Meds Home Medications and Allergies Home Medications Medication Instructions Recorded Confirmed Type prenat.vits,nadia,gxo-vbtq-bluqh 1 tab PO QDAY 08/05/22 08/02/23 History multivitamin with iron (Daily 1 tab PO QDAY 05/04/23 08/02/23 History Vites/Iron tablet) Allergies Allergy/AdvReac Type Severity Reaction Status Date / Time levofloxacin [From Levaquin] Allergy Verified 07/29/23 09:30 OB - H&P: Exam Physical Exam: Vital signs: Temp Pulse Resp BP 98.2 F 107 H 16 110/74 08/02/23 05:22 08/02/23 05:22 08/02/23 05:22 08/02/23 05:22 Narrative: Vitals Reviewed Constitutional:? Alert and oriented x3 HEENT:? Normocephalic, atraumatic Neck:? Supple Lungs:? Clear to auscultation bilaterally Heart:? Regular rate and rhythm, no murmur, rub or gallop Abdomen:? Soft, nontender, and gravid. Vertex by Fabian's, confirmed with cervical exam. Extremities:? No edema or erythema Cervix: 1 cm/50%/-3 station/vertex NST: 150 bpm/moderate variability/15x15 accelerations/no decelerations/irritability and occasional contractions OB - Results Labs Labs: Short CBC 08/02/23 Range/Units 05:35 WBC 8.28 (4.50-11.00) K/uL Hgb 13.0 (12.0-16.0) gm/dL Hct 38.6 (33.0-51.0) % Plt Count 171 (140-440) K/uL OB - Problem Based A/P Additional Plan (1) premature rupture of membranes: Status: Acute (2) History of section complicating : Status: Acute (3) 36 weeks gestation of : Status: Acute Plan ASSESSMENT:? 27 at 36 4/7 weeks gestation? complicated by:?Hx of c/s, hx of depression, hx of kidney stones, failed 1 hour gct (passed 3 hour) Labor type: Augmented, Early labor? Category 1 FHR pattern.?? Labor complicated by: Hx of c/s? GBS negative? ? PLAN:? 1. Routine intrapartum cares as ordered. Discussed Pitocin for labor augmentation due to hx of c/s and ROM without contractions for 12 hours. She agrees with plan. 2. Monitoring per policy, continuous? 3. Planning unmedicated . Candidate for analgesia of choice if desired.?? 4. Patient encouraged to reposition and ambulate to promote physiologic labor and .? 5. MD notified of patient. MD to be notified when patient in active labor, OR crew and MD to be in house beginning at that time until delivery. 6. Anticipate ?
--- NOTE | 2023-08-02 15:40 | PM.OBPNL ---
Subjective Date Seen: 08/02/23 Narrative: Chelly is coping well with labor pain/contractions. She is currently being supported by her significant other. She continues to contract with IV Pitocin infusing per protocol. She feels contractions but states some are more painful than other. She states she doesn't feel like she is in labor at this time. Has been changing positions and activity frequently. Discussed options to continue with Pitocin and reevaluate in a few hours, or to do SVE and if possible break her water if there is a forebag. She has continued to leak fluid since admission. Chelly wanted a check and rupture if possible. On exam forebag was felt and AROM done for large amount of clear fluid. Objective Exam: VSS? General Appearance:? Alert,?appropriate appearance?for age. No acute distress? Chest/Respiratory Exam: Normal respiratory effort, symmetrical chest wall rise. ? Gastrointestinal Exam: non-tender,? Gravid? Neurologic Exam: Normal gait and speech, no tremor.? Psychiatric Exam: Alert and oriented, appropriate affect.??? 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 complicated by:?Previous C/S Labor type: Spontaneous, Early labor? Category 1 FHR pattern.?? Labor complicated by: PROM? GBS negative? ? PLAN:? 1. Routine intrapartum cares as ordered. Continue with expectant management? 2. Monitoring per policy, continuous ? 3. Planning unmedicated . Candidate for analgesia of choice.?? 4. Patient encouraged to reposition and ambulate to promote physiologic labor and .? 5. Anticipate ?
[2023-08-02] MEDS: ONDANSETRON 2 MG/ML inj 4 MG IV (20:38)
[2023-08-02] MEDS: LACTATED RINGERS 1000 ML 1,000 ML 110 ML IV (22:49)
[2023-08-02] MEDS: METHYLERGONOVINE MALEATE 0.2 MG/ML INJ IM (23:20)
[2023-08-02] MEDS: miSOPROStoL 800 MCG/4 TABLET PR (23:42)
[2023-08-02] MEDS: LIDOCAINE 1 % PF 30 ML INJECTION (23:45)
[2023-08-02] MEDS: TRANEXAMIC ACID 100 MG/ML INJ 1000 MG IV (23:56)
[2023-08-03] VITALS (8 sets, daily range): BP systolic 92–122; BP diastolic 56–65; PULSE 76–104; RESP 16; TEMP 36.8
[2023-08-03] MEDS: LIDOCAINE 1 % PF 30 ML INJECTION (00:09)
--- NOTE | 2023-08-03 00:13 | PM.OBCN1 ---
OB - CN: HPI Date of Consult Time Seen by Provider: 00:13 Date Seen: 08/03/23 Patient: [facility] Patient Consult date: 08/03/23 Requesting Physician: Leida Sen CNM Primary Care Provider: Kenya Obando CNP Consult Narrative Narrative: Chelly is a 27 year old G 2 P 2002 at 36w5d gestation that was admitted to the Center on 08/02/23 for PROM. She is s/p within the last hour. I was asked to assess due to concern for continued slow oozing from unknown source. Per CNM team, patient had uterine atony s/p 40 u of Pitocin, Methergine x1, 800 mcg misoprostol, and 1 g of TXA currently running. Despite that, there is still slow bleeding. Upon my assessment patient, uterus was very firm with minimal bleeding upon multiple fundal checks. Most of the bleeding was coming from small lacerations near her vaginal introitus that were currently unrepaired. Bimanual exam: Unable to get passed the internal os into the lower uterine segment as uterus is very contracted. No clots in the cervix. Chelly has a lot of tenderness with the examinations as she is only using nitrous for pain control. I offered her morphine but she declined as she want to be alert and oriented to make decision for her . BSUS performed: Transverse and sagittal viewed assessed. Uterus with smooth normal contour. Endometrial strip thickness 1.5 cm with some heterogeneity likely from clots but no overt retained products. Discussed with patient that I think her uterine atony is well treated with uterotonics and antifibrinolytic. Current bleeding is very minimal and from superficial perineal lacerations. I suspect she'll do well after repair but will continue to monitor. History History 2 Elective abortions 0 Para 1 Spontaneous abortions 0 Hx # Term Pregnancies 1 Ectopic pregnancies Hx # Pregnancies 0 Multiple births 0 Number of Living Children 1 Past Pregnancies Del. Date GA/Weeks Outcome Route wt Inf Gender Labor Lgth Anesthesia Location Provider Compli 08/18/21 39 live - full term 8 lb 2 oz Female spinal Wili Labs Blood type: O (+) positive GBS status: negative OB Labs: Lab Assessment Start: 08/02/23 05:20 Freq: ONCE Status: Complete Protocol: PC.OBGBS Activity Type Activity Date Activity User E-sign Co-sign Detail Recorded Client Recorded Date Recorded By Document 08/02/23 05:32 JAZLYN [id number] 08/02/23 05:33 JAZLYN 08/02/23 05:32 Lab Assessment GBS Status negative GBS Additional Criteria None No Treatment Needed OK Are Labs Available Yes Maternal Blood Type O Maternal RH Factor Positive Evaluate Maternal Rubella Immune Status Immune Hepatitis B Surface Antigen Negative Maternal HIV Status Negative Maternal Syphillis (RPR) Status Negative [facility] Medical History Depression History of renal calculi Lower abdominal pain Surgical History History of extraction of renal calculus (2018) Status post primary low transverse section Family History Unknown Cervical cancer Social History What is your current living situation?: I presently have a place to live Problems where you live: no known problems In the past 12 months, utilities in danger of being shut off: no In the past 12 mos, have been you worried that your food would run out before you had money to buy more?: never true In the past 12 mos, the food you bought just didn't last and you didn't have money to buy more?: never true Smoking Status: Never smoker Do you use any of these nicotine containing products: None Second hand tobacco smoke exposure: No How often do you have a drink containing alcohol: never How often do you have six or more drinks on one occasion: Never AUDIT-C Alcohol total score: 0 Non-prescribed substance use: denies use How often does anyone, including family, friends and others, physically hurt you: never How often does anyone, including family, friends and others, insult or talk down to you: never How often does anyone, including family, friends and others, threaten you with harm: never How often does anyone, including family, friends and others, scream or curse at you: never Little interest or pleasure in doing things: not at all Feeling down, depressed, or hopeless: not at all service: No Meds Home Medications and Allergies Home Medications Medication Instructions Recorded Confirmed Type prenat.vits,nadia,djw-olvl-[id number] 1 tab PO QDAY 08/05/22 08/02/23 History multivitamin with iron (Daily 1 tab PO QDAY 05/04/23 08/02/23 History Vites/Iron tablet) Allergies Allergy/AdvReac Type Severity Reaction Status Date / Time levofloxacin [From Levaquin] Allergy Verified 07/29/23 09:30 OB - H&P: Exam Physical Exam: Vital signs: Temp Pulse Resp BP 98.1 F 88 16 104/58 L 08/02/23 21:00 08/03/23 00:05 08/02/23 19:10 08/03/23 00:05 OB - Results Labs Labs: Short CBC 08/02/23 Range/Units 05:35 WBC 8.28 (4.50-11.00) K/uL Hgb 13.0 (12.0-16.0) gm/dL Hct 38.6 (33.0-51.0) % Plt Count 171 (140-440) K/uL OB - CN: A/P Assessment and Plan (1) premature rupture of membranes: Status: Acute (2) History of section complicating : Status: Acute (3) 36 weeks gestation of : Status: Acute
--- NOTE | 2023-08-03 00:57 | W.PM.OBVAGDE ---
Documented by User: Keeley Humphrey CNM 08/03/23 01:54 OB Procedure Vag Delivery Mother Details Mother Details: The patient is a 27 year-old, 2, Para 1, admitted on 08/02/23 at 36.4 Days gestation with SROM. : 2 Para: 1 Weeks Gestation: 36.4 Admission Date: 08/02/23 Additional Details Amniotic Membrane Status: SROM Amniotic Membrane Rupture Date: 08/01/23 Amniotic Membrane Rupture Time: 17:00 Amniotic Membrane Fluid Description: Clear Analgesia/Anesthesia Type: Nitrous Oxide Waterbirth: No Pitcoin: Yes Intrapartal Events: Labor Augmentation Delivery augmentation: rupture of membranes and pitocin Labor Onset: 19:00 Complete: 22:44 Pushin:44 Heart: heart tones during second stage were Category 2, FHR 150 with moderate variability and no decels Delivery Details Delivery Date: 08/02/23 Delivery Time: 23:12 Route of delivery: Gender: Male Viability: Alive; Heart Rate Present Position at Delivery: OA Delivery Details: Augmented labor with IV Pitocin and AROM of forebag. Pt labored in various positions, on birthing ball, floor mat, in tub and in bed. Requested Nitrous for pain management with good relief, coping well with contractions. At 2244 began to spontaneously bear down with contractions, pt pushed on side, hands and knees, and semi-fowlers with good effort. At 2312 a viable?male infant delivered in vertex OA presentation over intact perineum via spontaneous vaginal?delivery. ? was placed on maternal abdomen. ?Increased brisk bleeding noted, and decision was made to clamp and cut cord. Brisk bleeding treated with Methergine and IV Pitocin. Placenta was delivered and bleeding continued to be consistent oozing with firm uterus noted. Vaginal tears evaluated for bleeding but oozing appeared to be coming from uterus. Given Cytotec 800mg rectally, fundal massage done with minimal slowing of bleeding. Called for Dr. Henriquez to evaluate patient and given TXA while awaiting her arrival. Small amount of tissue suspicious for membranes removed from vagina during this time. Dr. Henriquez came to bedside, did and US and evaluated bleeding. She did not feel need for further intervention at that time. Cord was clamped and cut after a 2.5 minute delay.? Nose and mouth were bulb suctioned.? weight pending. ? 7 at 1 minute and 8 at 5 minutes. ?Shoulder dystocia: no. ?Nuchal cord: no. [employer] present for delivery. Baby briefly evaluated at warmer, but then back to bedside. Baby noted to be having difficulty with breathing, likely r/t status. . Decision made to transfer to NICU for further support related to respiratory problems. Placenta delivered spontaneously and complete at 2334 with a 3 vessel cord. Mother stable after?delivery. Lacerations:? Bilateral sulcus tears, right repaired with 3-0 vicryl, left not repaired and was hemostatic. Bilateral periurethral tears not repaired, discussed with patient and offered repair of right periurethral tear, patient elected to not have repair done as tears were hemostatic. Blood loss: 500 mL. Blood loss measurement type: QBL? Sponge and needles counts are correct. 1 Minute Interval Total Score: 7 5 Minute Interval Total Score: 8 Additional Details Shoulder Dystocia: No Placenta Delivery Time: 23:34 Placental Delivery Description: Spontaneous Delivery repair: Vicryl Procedure Done: Global Blood Loss: 500 Laceration: Vaginal - 1st Degree (bilateral sulcus tears) Blood Loss Measurement Type: QBL Bakri Used: No Sponge/Need Count Correct: Yes Cord Vessel Description: 3 Vessels Event Summary Status: Mother was stable after delivery. Infant was to be transferred to NICU for respiratory support Disposition: floor Documented by User: Leida Sen CNM 08/03/23 01:54 OB Procedure Vag Delivery Delivery Details Delivery Details: Augmented labor with IV Pitocin and AROM of forebag. Pt labored in various positions, on birthing ball, floor mat, in tub and in bed. Requested Nitrous for pain management with good relief, coping well with contractions. At 2244 began to spontaneously bear down with contractions, pt pushed on side, hands and knees, and semi-fowlers with good effort. At 2312 a viable?male delivered in vertex OA presentation over intact perineum via spontaneous vaginal?delivery. ?Infant was placed on maternal abdomen. ?Increased brisk bleeding noted, and decision was made to clamp and cut cord after about a 2.5 minute delay. Brisk bleeding treated with Methergine and IV Pitocin. Bleeding noted to have slowed while waiting for delivery of placenta. Placenta was delivered and bleeding continued to be consistent oozing with firm uterus noted. Vaginal tears evaluated for bleeding but oozing appeared to be coming from uterus. Cytotec 800mg rectally given, fundal massage done with minimal slowing of consistent trickle of blood. Called for Dr. Henriquez to evaluate patient and given TXA while awaiting her arrival. Small amount of tissue suspicious for membranes removed from vaginal vault during this time. Dr. Henriquez at bedside, bleeding evaluated, and bedside u/s done. She did not feel need for further intervention at that time, and did not believe it was uterine bleeding. Nose and mouth were bulb suctioned.? Infant weight pending. ? 7 at 1 minute and 8 at 5 minutes. ?Shoulder dystocia: no. ?Nuchal cord: no. [employer] present for delivery. Baby briefly evaluated at warmer, but then back to bedside. Baby noted to be having difficulty with breathing, likely r/t status. Decision made to transfer to NICU for further support related to respiratory problems. Placenta delivered spontaneously and appeared complete at 2334 with a 3 vessel cord. Mother stable after?delivery. Lacerations:? Bilateral sulcus tears, right repaired with 3-0 vicryl, left not repaired and was hemostatic. Bilateral periurethral tears not repaired, discussed with patient and offered repair of right periurethral tear, patient elected to not have repair done as tears were hemostatic. Blood loss: 500 mL. Blood loss measurement type: QBL? Sponge and needles counts are correct.
--- NOTE | 2023-08-03 00:59 | P.DS_ITS ---
DS: Providers Provider Time Seen by Provider: 00:59 Date Seen: 08/03/23 Date of admission: 08/02/23 05:12 Primary care physician: Kenya Obando CNP Admitting Clinician: Fanny Fernando CNM Attending Physician on discharge: Fanny Fernando CNM Date of Discharge: 08/03/23 DS: Diagnosis Discharge Diagnosis (1) , delivered, current hospitalization: Status: Acute (2) delivery: Status: Acute (3) Lactating mother: Status: Acute (4) Laceration of vaginal wall or sulcus without perineal laceration during delivery: Status: Acute Exam Narrative: Exam Narrative: VSS, afebrile GENERAL APPEARANCE: ?normal affect, alert, no distress MOOD: ?appropriate HEENT: normocephalic, neck supple, full ROM CHEST: ?Symmetrical chest wall movement. ?Normal respiratory effort. ?Clear to auscultation HEART: ?regular rate and rhythm ABDOMEN: ?soft, non-tender. Uterine fundus is firm, at Umbilicus, Midline and is appropriate for the stage of recovery. ? PERINEUM: ?mild edema of the perineum, there is a bilateral sulcus lacerations that are healing well. EXTREMITIES: ?normal and no edema Const: Vital Signs, click to edit/add: Vital Signs - 24 hr 08/02/23 05:22 08/02/23 07:13 08/02/23 07:13 Temperature 98.2 F Pulse Rate 107 H 96 Respiratory Rate 16 Blood Pressure 110/74 111/67 08/02/23 07:15 08/02/23 08:04 08/02/23 08:04 Temperature 98.4 F Pulse Rate 95 Respiratory Rate 16 Blood Pressure 124/69 08/02/23 08:05 08/02/23 09:04 08/02/23 09:04 Temperature 98.7 F Pulse Rate 90 Respiratory Rate 16 Blood Pressure 99/58 L 08/02/23 09:07 08/02/23 10:00 08/02/23 10:04 Temperature 98.3 F 97.9 F Pulse Rate Respiratory Rate 16 16 Blood Pressure 111/76 08/02/23 10:04 08/02/23 11:03 08/02/23 11:03 Temperature Pulse Rate 91 90 Respiratory Rate Blood Pressure 99/68 08/02/23 11:05 08/02/23 11:56 08/02/23 11:56 Temperature 98.1 F Pulse Rate 103 H Respiratory Rate 16 Blood Pressure 111/66 08/02/23 12:07 08/02/23 13:07 08/02/23 13:07 Temperature 98.1 F Pulse Rate 107 H Respiratory Rate 16 Blood Pressure 112/66 08/02/23 14:09 08/02/23 14:09 08/02/23 14:13 Temperature 98.3 F Pulse Rate 90 Respiratory Rate 16 Blood Pressure 90/51 L 08/02/23 15:11 08/02/23 15:23 08/02/23 15:23 Temperature 98.4 F Pulse Rate 90 Respiratory Rate 16 Blood Pressure 126/60 08/02/23 16:18 08/02/23 16:18 08/02/23 16:20 Temperature 98.6 F Pulse Rate 113 H Respiratory Rate 16 Blood Pressure 110/70 08/02/23 17:01 08/02/23 17:01 08/02/23 17:02 Temperature 98.4 F Pulse Rate 97 Respiratory Rate 16 Blood Pressure 112/73 08/02/23 18:12 08/02/23 18:12 08/02/23 18:12 Temperature 98.4 F Pulse Rate 94 Respiratory Rate 16 Blood Pressure 109/75 08/02/23 19:08 08/02/23 19:08 08/02/23 19:10 Temperature 98.1 F Pulse Rate 95 Respiratory Rate 16 Blood Pressure 115/71 08/02/23 20:04 08/02/23 20:04 08/02/23 20:04 Temperature 98.1 F Pulse Rate 84 Respiratory Rate Blood Pressure 103/63 08/02/23 21:00 08/02/23 21:00 08/02/23 21:00 Temperature 98.1 F Pulse Rate 101 H Respiratory Rate Blood Pressure 117/74 08/02/23 22:09 08/02/23 22:09 08/02/23 23:35 Temperature Pulse Rate 112 H Respiratory Rate Blood Pressure 117/56 L 107/56 L 08/02/23 23:35 08/02/23 23:50 08/02/23 23:50 Temperature Pulse Rate 90 106 H Respiratory Rate Blood Pressure 99/57 L 08/03/23 00:05 08/03/23 00:20 08/03/23 00:35 Temperature Pulse Rate 88 102 H 104 H Respiratory Rate Blood Pressure 104/58 L 104/61 106/62 08/03/23 00:52 Temperature Pulse Rate 93 Respiratory Rate Blood Pressure 122/60 Documenting provider has reviewed patient's vital signs: yes OB - DS: Summary Hospital Course Hospital Course: Chelly is a 27 y.o. G 2 now P1102 who was admitted to [facility] for PROM. ?She had an successful complicated by a delivery. After delivery the baby was noted to have respiratory problems, likely r/t being . Evaluated by Mark MARCIAL, and decision made to transfer to NICU. Chelly requesting early discharge if she remains stable in the AM in order to be with baby. She may be discharged home if her?vitals remain stable and afebrile.? If she is voiding without difficulty and ambulating and denies any dizziness.?Lochia should remain WNL, and fundas firm. plan: Pt requesting early discharge to be with baby in the NICU. Follow up in 2 weeks and 6 weeks. , may follow up with if needed A small piece of membrane was removed from the vaginal vault, pt aware of signs of retained placenta, when to call Peripartum Data delivery method: Vaginal Laceration description: Vaginal - 1st Degree (bilateral sulcus, right repaired. Bilateral periurethrals, not bleeding, not repaired per pt preference) Infant Gender: Male [place] A Gender: Male Discharge Plan: transfer to NICU Status at Discharge Functional status at discharge: independent ambulation Overall status at discharge: patient is progressing back to baseline Time Spent with Patient Time attestation: Total time spent providing and/or coordinating discharge services: Time spent: Less than 30 minutes Discharge Plan Discharge Disposition: Home, Self-Care Date of Admission: 08/02/23 05:12 Attending Provider on Discharge: Leida Sen Primary Care Provider: Kenya Obando Condition: Stable Anticipated Discharge Date/Time: 08/03/23 06:00 Discharge Medications: New docusate sodium 100 mg Capsule 100 mg PO BID PRNQty: 100 0RF Rx Instructions: Take 1 cap 1-2 times a day as needed for constipation ibuprofen 600 mg Tablet 600 mg PO Q6H PRNQty: 60 0RF Continued prenat.vits,nadia,[id number] Tablet 1 tab PO QDAY Discontinued multivitamin with iron [Daily Vites/Iron] Tablet 1 tab PO QDAY Discharge Orders: Discharge Order (Routine); Ordered 08/03/23 Ordered By: Leida Sen Patient Education: OB Over the Counter Medication Information, OB Vaginal/Breast Feeding Additional Instructions: Follow up in 2 weeks and 6 weeks Activity Level: Activity as Tolerated Discharge Diet: Regular Follow Up Appointments: Kenya Obando [employer] [Primary Care Provider] - Forms: [facility] Info Instructions
[2023-08-03] MEDS: IBUPROFEN 600 MG TABLET PO (02:20)
== END 2023-08-03 08:05 | disposition home or self-care (01) | DRG 807 ==
LOC: OB OUT 05:13 → OB 08-03 01:16
PROVIDERS: Admitting Provider Advanced Practice Midwife; PCP Nurse Practitioner Family; Visit Provider Advanced Practice Midwife
DX: O42.013 Preterm premature rupture of membranes, onset of labor within 24 hours of rupture, third trimester (principal); Z37.0 Single live birth; O34.211 Maternal care for low transverse scar from previous cesarean delivery; Z87.442 Personal history of urinary calculi; Z86.59 Personal history of other mental and behavioral disorders; Z3A.36 36 weeks gestation of pregnancy; O70.0 First degree perineal laceration during delivery
CPT/HCPCS: 36415; 85025; 86850; 86900; 86901; 88307; 99213; A9270; J2001; J2210; J2405; J7120

== ENCOUNTER 2023-11-09 08:00 | Outpatient (RCR) | payer OTHER, SELFPAY | END 2024-03-08 23:59 | disposition home or self-care (01) | PROVIDERS: PCP Nurse Practitioner Family; Visit Provider Advanced Practice Midwife | DX: Z39.2 Encounter for routine postpartum follow-up (principal); N81.89 Other female genital prolapse; R53.1 Weakness; K59.00 Constipation, unspecified; R27.8 Other lack of coordination; N39.3 Stress incontinence (female) (male); Z51.89 Encounter for other specified aftercare | CPT/HCPCS: 97110; 97140; 97162; 97535 ==

== ENCOUNTER 2023-12-05 08:07 | Outpatient (CLI) | payer OTHER, SELFPAY | END 2023-12-05 08:08 | disposition home or self-care (01) | LOC: US 08:08 | PROVIDERS: PCP Nurse Practitioner Family; Visit Provider Obstetrics & Gynecology | DX: Z30.09 Encounter for other general counseling and advice on contraception (principal) | CPT/HCPCS: 58300; 76830; 76857; 76942; J7298 ==

== ENCOUNTER 2024-01-04 16:44 | Outpatient (CLI) | payer OTHER, SELFPAY ==
--- OUTSIDE RECORDS SUMMARY | 2024-01-04 16:46 | XMS_ITS | Encounter Summary ---
Author Name Unknown Organization [facility] Address [address] [address] Care Team Providers Care Warp Spooler Name Role Phone No Primary/Referring, Phy Primary Care Provider Unavailable Encounter Details Date Type Department Care Team Description 03/24/2023 Notes/Orders [facility] [address] [place] [address] Letitia Meza LPN Patient counseled (Primary Dx) Social History Tobacco Use Types Packs/Day Years Used Date Smoking Tobacco: Never Smokeless Tobacco: Never Alcohol Use Standard Drinks/Week Comments No 0 (1 standard drink = 0.6 oz pur e alcohol) Socially Depression Answer Date Recor ded Last EPDS Total Score 0 03/24/2023 Last EPDS Self Harm Result 0-->never 03/24 Comments Yes Sex and Gender Information Value Date Recorded Sex Assigned at Not on file Gender Identity Not on file Sexual Orientation Not on file documented as of this encounter Plan of Treatment Not on file documented as of this encounter Visit Diagnoses Diagnosis Patient counseled- Primary documented in this encounter Care Teams Warp Spooler Relationship Specialty Start Date End Date No Primary/Referring, Alfredo PCP - General 01/04/15 documented as of this encounter
--- OUTSIDE RECORDS SUMMARY | 2024-01-04 16:46 | XMS_ITS | Encounter Summary ---
Author Name Unknown Organization [facility] Address [address] [place] [address] Care Team Providers Care Seasoner Name Role Phone No Primary/Referring, Phy Primary Care Provider Unavailable Reason for Visit * Procedure/Equipment (Routine) - Incomplete Specialty Diagnoses / Procedures Referred By Wanda t Referred To Contact Diagnoses Encounter for supervision of other normal in second trimester Procedures OBGYN Second Trimester Ultrasound Patty Saavedra MD [address] [place] [address] Referral ID Status Reason Start Date Expiration Date V isits Requested Visits Authorized [id number] Incomplete 03/24/2023 06/22/2024 1 1 Encounter Details Date Type Department Care Team Description 04/05/2023 8:20 AM CDT Office Visit [facility] OB-FBI PROFILER Ultrasound [facility] [place] [address] Patty Saavedra MD [address] [place] [address] Encounter for supervision of other normal in second trimester Social History Tobacco Use Types Packs/Day Years [...] on file documented as of this encounter Procedures Procedure Name Priority Date/Time Associated Diagnosis Comments OBGYN SECOND TRIMESTER ULTRASOUND Routine 04/05/2023 9:02 AM CDT Encounter for supervision of other normal in second trimester documented in this encounter Results * OBGYN Second Trimester Ultrasound (04/05/2023 9:02 AM CDT) Cervical Length 3.10 cm EXTE RNAL RESULTS Anatomical Region Laterality Modality Pelvis Ultrasound Study GA Study Date Study ANABEL Working ANABEL (Source) Feta l Weight (Method) 20w3d 04/05/2023 08/20/2023 08/26/2023 (Las t Menstrual Period) 349 g (Hadlock 1984 (BPD, HC, AC, FL) )352 g (Hadlock 1984 (AC, FL) )349 g (Hadlock 1984 (BPD, AC, FL) )347 g (Hadlock 1984 (HC, AC, FL) )360 g (Hadlock 1983 (AC) )339 g (Hadlock 1983 (HC, AC) )340 g (Calvin 1981 (BPD, AC) ) Result Name Value Comments GA by US Calc 143 days 143 FHR 143 bpm BPD 4.65 cm 140 OFD cm HC 17.79 cm 142 AC 15.09 cm 142 FL 3.34 cm 143 HL 3.18 cm CI % FL/BPD .72 FL/AC .22 HC/AC 1.18 UAR - PSV cm/s UAR - S/D Ratio UAR - RI UAR - PI MCA - PSV cm/s MCA - S/D Ratio MCA - PI Gest Sac cm Yolk Sac cm CRL cm NT mm Lateral Ventricle .67 cm CER 2 cm Cisterna Magna .62 cm HALEY cm Foot cm NF .53 cm Narrative 04/05/2023 9:30 AM CDT Table formatting from the original result was not included. Images from the original result were not included. ??Chelly Becker ??Obstetrics Report Date: 04/05/2023 ?? Pillow appraiser timber Ultrasound [address] [place] [address] Dept Dept Patient Information ?Name: Chelly Becker ??: 1995 (27 y.o.) (F) BMI: None Date: 04/05/2023 9:30 AM Performed By ?? General Car Yard Supervisor(s) initials: KW Attending: Claudine Anthony MD Referred by: Patty Saavedra MD Referring location: AV ?? Procedure OBGYN SECOND TRIMESTER ULTRASOUND Indications Encounter for supervision of other normal in second trimester Gestational Age LMP: 11/19/2022 GA by Today's US: 20w3d ?? Working GA: 19w4d Working ANABEL: 08/26/2023, by Last Menstrual Period Maternal Evaluation Cervix Appears Normal Approach Transabdominal Cul-de-sac No fluid seen Uterus Appears Normal Right Ovary Inadequately Visualized Left Ovary Inadequately Visualized Right Adnexa Appears Normal Left Adnexa Appears Normal Cervical Length: 3.10 cm ? Ultrasound Findings Fetus 1 Evaluation Cardiac Activity Present Presentation Cephalic Placenta Location Posterior Placenta Cord Insertion Normal Gestation Type Castro ? Biometry Heart Rate: 143 bpm BPD 4.65 cm 71% 20w0d HC 17.79 cm 74% 20w2d AC 15.09 cm 70% 20w2d FL 3.34 cm 74% 20w3d HL 3.18 cm 75% ?? FL/BPD 0.72 ?? FL/AC 0.22 ?? HC/AC 1.18 50% ?? Lateral Ventricle 0.67 cm ?? CER 2 cm 50 - 90% ?? Cisterna Magna 0.62 cm ?? NF 0.53 cm ?? Estimated FW: Hadlock 1984 (BPD, HC, AC, FL) : 349 g (12.3 oz), 86% Estimated Weights ?? Fetus 1: 349g (86%) ?? Head Cranium appears normal Midline Falx appears normal Cerebellum/Vermis appears normal Cisterna Magna appears normal Lateral Ventricle appears normal Choroid Plexus appears normal Cavum Septi Pellucidi appears normal Nuchal Fold appears normal Face Face appears normal Lips/Nose appears normal Profile appears normal Nasal Bone appears normal Spine Spine appears normal Chest Thorax appears normal Lungs appears normal Heart Heart Rhythm regular 4 Chamber View appears normal Cardiac Max appears normal LVOT/AO appears normal RVOT/PA appears normal Aortic Arch appears normal Ductal Arch appears normal 3 Vessel Trachea View appears normal 3 Vessel View appears normal Abdomen Diaphragm appears normal Stomach appears normal Umbilical Cord Insertion appears normal Cord Vessels three Urinary Tract Right Kidney appears normal Left Kidney appears normal Bladder appears normal Genitalia Genitalia appears normal Sex male Extremities Right Upper Extremity appears normal Right Hand appears normal Left Upper Extremity appears normal Left Hand appears normal Right Lower Extremity appears normal Right Foot appears normal Left Lower Extremity appears normal Left Foot appears normal ? General Car Yard Supervisor Comments GA by Ultrasound is 20w3d +/- 10 days. (ANABEL by Ultrasound is 08/20/23) Clinical ANABEL Estimated Date of Delivery: 08/26/23 (by LMP 11/19/22) = 19w4d Patient did not have first trimester aneuploidy screening. Transfer of care. Patient reports early US ~9w gestation, ANABEL based on LMP, measuring 1 day different at 1st tri US. Impression anatomy screen is complete and normal. No major anomalies are seen. Normal growth, consistent with clinical dating and previous ultrasound, current gestational age is 19w4d. Placenta is Posterior. Normal cervical length: 3.10 cm Measured abdominally. ?? Recommendations The patient is informed of the ultrasound findings by the physician and will follow up with her obstetrical provider. ?? Claudine Anthony MD Patty Saavedra MD [facility] US documented in this encounter Visit Diagnoses Diagnosis Encounter for supervision of other normal in second trimester documented in this encounter Care Teams Seasoner Relationship Specialty Start Date End Date No Primary/Referring, Phy PCP - General 01/04/15 documented as of this encounter
--- OUTSIDE RECORDS SUMMARY | 2024-01-04 16:46 | XMS_ITS | Clinical Summary ---
Author Name Unknown Organization [facility] Address [address] [place] [address] Care Team Providers Care Clerical Coordinator Name Role Phone No Primary/Referring, Phy Primary Care Provider Unavailable Source Comments You are receiving this document as you are listed as the primary care provider,follow-up provider, or the patient has been referred to you for consultation.This is in compliance with the Medicare andMedicaid EHR Incentive Program,which states Providers who transition their patient to another setting of careor provider of care or refers their patient to another provider of care shouldprovide summary care record for each transition of care or referral. [facility] Allergies Active Allergy Reactions Criticality Noted Date Comments Levofloxacin Other, see comments 11/24/2017 Given iv and redness of veins as it infused, Medications Medication Sig Dispensed Refills Start Date End Date Status acetaminophen (TYLENOL) 500 MG tablet Take 2 Tablets (1,000 mg) by mouth every 6 hours as needed for Pain. Maximum acetaminophen dose is 4000 mg in 24 hours 0 Active aspirin 81 MG chewable tablet Chew and swallow 1 Tablet (81 mg) by mouth daily. 0 Active vitamin-ferrous fumarate-folic acid (PRENATALPLUS) 27-1 MG tablet Take 1 Tablet by mouth daily. 0 Active docusate sodium (AKA COLACE) 50 MG capsule Take 1 Capsule (50 mg) by mouth two times a day. 0 Active Active Problems Problem Noted Date Diagnosed Date Ovarian cyst, right 01/19/2018 Right ureteral stone 01/13/2018 Overview: Added automatically from request for surgery [id number] Resolved Problems Problem Noted Date Diagnosed Date Resolved Date History of depression 07/30/20212022 arrhythmia affecting p regnancy, antepartum 05/18/2021 03/24/2023 Moderate episode of recurren t major depressive disorder 08/24/2018 03/24/2023 Immunizations Name Administration Dates Next Due DTP 01/09/2001, 7,03/22/1996,1995,1995 Flu Vac Preserv Free (3+yrs) 08/21/2015 Flublok (RIV4) 08/29/2019 Fluzone Qiv Multidose Vial 0 .25 (6-35 Mos) 09/22/2021 HepB, Unspecified Formulation 07/24/1996, 996,01/26/1996 Hib, Unspecified Formulation 03/22/1996, 96,1995 Influenza IIV4 (Quadrivalent ) 0.5mL (64998) 08/25/2022,08/30/2017 Influenza, Unspecified Formulation 09/11/2018, MCV4 (Menactra) 03/27/2014 MMRV (ProQuad) 01/09/2001,12/28/1996 OPV, Trivalent (Orimune or tOPV) 001,12/28/1996,01/26/1996,1994 Pfizer Bivalent 12+ 08/25/2022 Pfizer Monovalent 12+ Purple Top 09/22/2021,11/28,11/19/2020 Tdap 06/16/2021,06/10/2015 Varicella 09/01/2015 Family History Medical History Relation Name Comments Cancer Mother Cervical Cancer Cancer, Breast Maternal Grandfather Relation Name Status Comments Mother Alive Maternal Grandfather Social History Tobacco Use Types Packs/Day Years Used Date Smoking Tobacco: Never Smokeless Tobacco: Never Alcohol Use Standard Drinks/Week Comments No 0 (1 standard drink = 0.6 oz pur e alcohol) Socially Depression Answer Date Recor ded Last EPDS Total Score 0 03/24/2023 Last EPDS Self Harm Result 0-->never 03/24 Sex and Gender Information Value Date Recorded Sex Assigned at Not on file Gender Identity Not on file Sexual Orientation Not on file Last Filed Vital Signs Vital Sign Reading Time Taken Comments Blood Pressure 100/60 06/26/2018 9:29 AM CDT Pulse 74 06/26/2018 9:29 AM CDT Temperature 36.8 ??C (98.3 ??F) 06/26/2018 9:29 AM CD T Respiratory Rate 18 02/12/2018 2:34 PM CDT Oxygen Saturation 97% 06/26/2018 9:29 AM CDT Inhaled Oxygen Concentration - - Weight 63 kg (139 lb) 06/26/2018 9:29 AM CDT Height 165.7 cm (5' 5.25) 02/06/2018 12:26 PM C DT Body Mass Index 22.95 02/06/2018 12:26 PM CDT Plan of Treatment Health Maintenance Due Date Last Done Comments Cervical Cancer Screening Due 1995 Hep C Screening (Preventive Services) 1995 Adult Preventive Visit 2013 COVID-19 Vaccine ( season) 2023 08/25/2022, 09/22/2021, 12/09/2020, Additional history exists Influenza (#1) 2023 08/25/2022, 08/29, 08/29/2019, Additional history exists DTaP/Tdap/Td (8 - Tdap) 06/16/2031 06/16/20 21, 06/10/2015, 01/09/2001, Additional history exists Zoster/Shingles (1 of 2) 2045 Hib Aged Out 03/22/1996, 12/30, 1995 No longer eligible based on patient's age to complete this topic HepB Completed 07/24/1996, 02/27, 01/26/1996 IPV (Polio) Completed 01/09/2001, 11/30, 01/26/1996, Additional history exists MCV4 Completed 03/27/2014 Varicella Completed 09/01/2015, 12/29, 12/28/1996 Chlamydia Discontinued 01/24/2023, 08/24/2018 HIV Screening (Preventive Services) Completed 01/24/2023 HPV Vaccine Aged Out No longer eligi ble based on patient's age to complete this topic HepA Aged Out No longer eligi ble based on patient's age to complete this topic Pneumococcal Aged Out No longer eligi ble based on patient's age to complete this topic Medical Devices Implanted Type Area Computer Aided Design Technician Device Identifier Shelf Expiration Date Model / Serial / Lot Stent Ureteral Inlay 6fr 26cm - [id number] Implanted:Qty: 1 on 02/07/2018 by Mariya Avina MBBS at [facility] DEVICE Right: U[employer]TER [employer] 09/06/2022 [id number] / / [id number] Advance Directives Latest Code Status on File Code Status Date Activated Date Inactivated Comments Full Code 02/11/2018 2:27 PM 02/12/2018 6:34 PM Care Teams Clerical Coordinator Relationship Specialty Start Date End Date No Primary/Referring, Ryany PCP - General 01/04/15
--- OUTSIDE RECORDS SUMMARY | 2024-01-04 16:46 | XMS_ITS | Encounter Summary ---
Author Name Unknown Organization [facility] Address [address] [address] Care Team Providers Care Imaging Clerk Name Role Phone No Primary/Referring, Phy Primary Care Provider Unavailable Reason for Referral * Procedure/Equipment (Routine) - Incomplete Specialty Diagnoses / Procedures Referred By Contac t Referred To Contact Diagnoses Encounter for supervision of other normal in second trimester Procedures OBGYN Second Trimester Ultrasound Patty Saavedra MD [address] [place] [address] Referral ID Status Reason Start Date Expiration Date V isits Requested Visits Authorized [id number] Incomplete 03/24/2023 06/22/2024 1 1 * Procedure/Equipment (Routine) - Incomplete Specialty Diagnoses / Procedures Referred By Contac t Referred To Contact Diagnoses Encounter for supervision of other normal in second trimester Procedures OBGYN Second Trimester Ultrasound Patty Saavedra MD [address] [place] [address] Referral ID Status Reason Start Date Expiration Date V isits Requested Visits Authorized [id number] Incomplete 03/24/2023 06/22/2024 1 1 Reason for Visit * Reason Comments Ob Exam, Initial Encounter Details Date Type Department Care Team Description 03/24/2023 2:20 PM CDT Initial [facility] [address] [place] [address] Patty Saavedra MD [place] [address] Ob Exam, Initial Social History Tobacco Use Types Packs/Day Years [...] on file documented as of this encounter Patient Instructions * Patient Instructions* Patty Saavedra MD - 03/24/2023 2:20 PM CDT Please call to schedule an anatomy ultrasound in 2.5-3 weeks documented in this encounter Progress Notes * Patty Saavedra MD - 03/24/2023 2:20 PM CDT Images from the original note were not included. Subjective Chelly Becker is a 27 y.o. @ 17w6d by [facility] 08/26/23 who presents for a transfer of care visit. 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 Since her last menstrual period she has had no vaginal bleeding. Since her last menstrual period, she has taken PNVs and ASA 81mg. She is experiencing the following symptoms of : no symptoms at this time. Domestic violence concerns: denies any concern Factors pertinent to this are the following: -h/o C/S x 1 due to arrhythmia; desires repeat C/S -h/o depression Healthy Beginnings questionnaire reviewed & discussed: yes - no concerns Questions: View : No data to display. OB History Para Term AB Living 2 1 1 0 0 1 SAB IAB Ectopic Multiple Live Births 0 0 0 0 1 # Outcome Date GA Lbr Markus/2nd Weight Sex Delivery Anes PTL Lv 2 Current 1 Term 08/18/21 F CS-LTranv OLINDA Complications: Other (comment) Previous : Yes Number of previous C/S: 1 Vaginal deliveries: 0 Indications for C/S: arrhythmia, unable to monitor in labor Incision type: low transverse per patient report Uterine closure: unknown The OR report was requested today. 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 History: History of abnormal Pap: denies Past Medical History: Diagnosis Date arrhythmia affecting , antepartum 05/18/2021 History of depression 07/30/2021 Moderate episode of recurrent major depressive disorder (HRC) 08/24/2018 Past Surgical History: Procedure Laterality Date TONSILLECTOMY Family History Problem Relation Age of Onset Cancer Mother 30 Cervical Cancer Cancer, Breast Maternal Grandfather Social History Tobacco Use Smoking status: Never Smokeless tobacco: Never Vaping Use Vaping Use: Never used Substance Use Topics Alcohol use: No Comment: Socially Drug use: No Social History Occupational History 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 Maximum acetaminophen dose is 4000 mg in 24 hours, Disp: , Rfl: vitamin-ferrous fumarate-folic acid (PRENATALPLUS) 27-1 MG tablet, Take 1 Tablet by mouth daily., Disp: , Rfl: No current facility-administered medications on file as of 03/24/2023. Review of Systems: Complete ROS is negative unless noted in HPI. Objective LMP (LMP Unknown) No Patient BMI is >= 35? No General: aox3, nad HEENT: ncat, perrla, eomi Neck: supple, trachea midline Lungs: normal respiratory effort CV: RRR Abd: gravid, well healed pfannenstiel incision, FHTs normal with regular rhythm with doppler, S/NT/ND, no guarding Skin: no rashes Extrem: BLE symmetric, no edema Pelvic: deferred Assessment Assessment: 27 y.o. @ 17w6d. Plan Discussed routine care, timing of visits, and the location of delivery. Discussed HIV, drug screen and STI testing as indicated. Discussed options for genetic screening. Chelly declined genetic and carrier screening. Additional testing and monitoring to include: -Routine OB: s/p first OB labs. S/p dating U/S, self reported today. All records requested. AnatomyU/S in 2.5-3 weeks. Continue ASA 81mg daily. -H/o C/S: Op note requested. Desires repeat C/S. Discussed 39 week timing. -H/o arrhythmia: PACs with a structurally normal heart. Normal FHTs with normal rhythm on doppler today. -H/o depression: Not currently on medication. Discussed use of vitamins, DHA and vitamin D RTC in 5-6 weeks, sooner if problems Patty Saavedra MD documented in this encounter Plan of Treatment Scheduled Orders Name Type Priority Associated Diagnoses Orde r Schedule OBGYN Second Trimester Ultrasound Imaging New Routine Encounter for supervision of other normal in second trimester Expected: 03/24/2023, Expires: 03/24/2024 documented as of this encounter Results * OBGYN Second Trimester Ultrasound (04/05/2023 9:02 AM CDT) Cervical Length 3.10 cm EXTE RNAL RESULTS Anatomical Region Laterality Modality Pelvis Ultrasound Study GA Study Date Study ANABEL Working ANABEL (Source) Feta l Weight (Method) 20w3d 04/05/2023 08/20/2023 08/26/2023 ([place] t Menstrual Period) 349 g (Hadlock 1985 (BPD, HC, AC, [place]) )352 g (Hadlock [...] ??Chelly Becker ??Obstetrics Report Date: 04/05/2023 ?? 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 [address] Dept Dept Patient Information ?Name: Chelly Becker ??: 1995 (27 y.o.) (F) BMI: None Date: 04/05/2023 9:30 AM Performed By ?? Datacap Developer(s) initials: KW Attending: Claudine Anthony MD Referred [...] regular 4 Chamber [place] appears normal Cardiac [place] appears normal LVOT/AO appears normal RVOT/PA appears [...] appears normal Left Foot appears normal ? Datacap Developer Comments GA by Ultrasound is 20w3d +/- 10 days. (ANABEL by Ultrasound is 08/20/23) Clinical ANABEL Estimated Date of Delivery: 08/26/23 (by LMP 11/19/22) = 19w4d Patient did not have first trimester aneuploidy screening. Transfer of care. Patient reports early US ~9w gestation, ANABEL based on LMP, measuring 1 day different at [address] [place] [address] US. Impression anatomy screen is complete and [...] ?? Claudine Anthony MD Patty Saavedra MD [facility] documented in this encounter Visit Diagnoses Diagnosis Encounter for supervision of other normal in second trimester- Primary History of delivery Other postprocedural status History of depression Personal history of other mental disorder Encounter for supervision of other normal in second trimester documented in this encounter Care Teams Imaging Clerk Relationship Specialty Start Date End Date No Primary/Referring, Phy PCP - General 01/04/15 documented as of this encounter
--- OUTSIDE RECORDS SUMMARY | 2024-01-04 16:46 | XMS_ITS | Clinical Summary ---
Author Name Unknown Organization [facility] Address [place], [place] [address] Care Team Providers Care Road Consultant Name Role Phone Leida Sen [facility] Primary Care Provider Allergies Active Allergy Reactions Criticality Noted Date Comments Levofloxacin Rash,Itching Unknown 07/10/2015 Per ER Nursing notification. Medications Medication Sig Dispensed Refills Start Date End Date Status PNV/ferrous sulfate/folic acid ( MULTIVIT WITH IRON ORAL) Take by mouth. 0 Activ e calcium phosphate dibas/vit D3 (VITAMIN D, WITH CALCIUM, ORAL) Take by mouth. 0 A ctive Active Problems Problem Noted Date Diagnosed Date History of depression 07/30/2021 arrhythmia affecting , antepartum 05/18/2021 Resolved Problems Problem Noted Date Diagnosed Date Resolved Date UTI (urinary tract infection) 07/11/2015 07/29/2021 Severe sepsis without septic shock 07/11/2015 07/29/2021 Family History Medical History Relation Name Comments No Known Problems Father No Known Problems Mother Relation Name Status Comments Father Alive Mother Alive Social History Tobacco Use Types Packs/Day Years Used Date Smoking Tobacco: Never Smokeless Tobacco: Never Alcohol Use Standard Drinks/Week Comments No 0 (1 standard drink = 0.6 oz pur e alcohol) Sex and Gender Information Value Date Recorded Sex Assigned at Not on file Gender Identity Not on file Sexual Orientation Not on file Obstetrics History Para Term AB IAB SAB Ectopic Multiple Livin g Live Births 1 0 0 0 0 0 Date Outcome GA Total Labor Labor/2nd/3rd Weight Sex Delivery Anes PTL Minerva A1 A5 Name Cl in Last Filed Vital Signs Vital Sign Reading Time Taken Comments Blood Pressure 108/62 07/30/2021 11:32 AM CDT Pulse 94 07/30/2021 11:32 AM CDT Temperature 36.3 ??C (97.4 ??F) 07/30/2021 7:15 AM CD T Respiratory Rate 16 07/30/2021 7:15 AM CDT Oxygen Saturation 96% 07/30/2021 11:33 AM CDT Inhaled Oxygen Concentration - - Weight 59.9 kg (132 lb) 02/26/2019 9:37 PM CDT Height 170.2 cm (5' 7) 02/26/2019 9:37 PM CDT Body Mass Index 20.67 02/26/2019 9:37 PM CDT Plan of Treatment Health Maintenance Due Date Last Done Comments Tdap 2006 Depression screening for age 12+ 2007 HIV for age 15-65 2010 BMI (ht and wt on same day) for age 18+ 2013 Hepatitis C screening for ag e 18-79 2013 Tetanus booster 2015 COVID-19 vaccine series (2022- season) 2023 08/25/2022, 09/22/2021 Influenza for age 9-49 07/29/2023 Pap test for age 21-65 01/24/2026 , 01/24/2023, 06/11/2019 Pneumococcal series for age 6-64 Aged Out No longer eligible b ased on patient's age to complete this topic Advance Directives Latest Code Status on File Code Status Date Activated Date Inactivated Comments Full Code 07/29/2021 5:11 PM 07/30/2021 4:39 PM Question Answer Comments Code Status Discussion: Not Discussed Code Status History Code Status Date Activated Date Inactivated Comments Full Code 07/10/2015 7:48 PM 07/12/2015 7:[address] Consultant Relationship Specialty Start Date End Date Leida Sen CNM [address] [place] [address] PCP - General Certified Nurse Porcelain Enameler 05/18/21
--- NOTE | 2024-01-04 17:00 | CRLHL7_ITS ---
For Patients: As a result of the Century Cures Act, medical imaging exams and procedure reports are released immediately into your electronic medical record. You may view this report before your referring provider. If you have questions, please contact your health care provider. CLINICAL HISTORY: IUD PLACEMENT Comparison 12/05/2023 TECHNIQUE: 2D reese scale and color Doppler images were acquired of the pelvis using a transvaginal approach. FINDINGS: On transvaginal imaging, the myometrium has a normal uniform echotexture. The uterus measures 4.7 x 3.5 x 3.6 cm. The endometrial lining appears normal and measures 4 mm in thickness. No IUD is present. The left ovary measures 3.3 x 2.0 x 1.9 cm in size and the right ovary measures 4.3 x 1.5 x 2.2 cm. The ovaries demonstrate normal arterial and venous blood flow on color Doppler analysis. There are no suspicious fluid collections within the cul-de-sac. IMPRESSION: No IUD is present. Dictated by Alexander Adan MD @ 01/05/2024 10:08:43 AM (Electronically Signed)
== END 2024-01-04 16:45 | disposition home or self-care (01) ==
LOC: US 16:44
PROVIDERS: PCP Nurse Practitioner Family; Visit Provider Physician Assistant
DX: T83.32XA Displacement of intrauterine contraceptive device, initial encounter (principal)
CPT/HCPCS: 76830

== ENCOUNTER 2024-01-09 07:53 | Outpatient (CLI) | payer OTHER, SELFPAY ==
--- NOTE | 2024-01-09 08:00 | XR_ITS ---
INDICATION: DISPLACEMENT OF IUD COMPARISON: PELVIC ULTRASOUND 01/04/2024 TECHNIQUE: ABDOMEN ONE VIEW FINDINGS: SMALL STONE MAY BE PRESENT WITHIN THE LOWER POLE OF THE LEFT KIDNEY MEASURING 2-3 MM. MODERATE STOOL IN THE COLON WITHOUT BOWEL OBSTRUCTION. IUD IS PRESENT WITHIN THE MIDLINE OF THE PELVIS. THE IUD DOES NOT APPEAR TO BE PRESENT WITHIN THE ENDOMETRIAL CANAL ON THE RECENT ULTRASOUND. IMPRESSION: THE IUD IS LOCATED IN THE PELVIS. POSSIBLE LEFT NEPHROLITHIASIS.
--- OUTSIDE RECORDS SUMMARY | 2024-01-09 08:02 | XMS_ITS | Clinical Summary ---
Author Name Unknown Organization [facility] Address [address] [place] [address] Care Team Providers Care Livestock Nutritionist Name Role Phone No Primary/Referring, Phy Primary [...] for each transition of care or referral. [facility] Allergies Active Allergy Reactions Criticality Noted Date [...] Overview: Added automatically from request for surgery [id number] Resolved Problems Problem Noted Date Diagnosed Date [...] 03/22/1996, 96,1995 Influenza IIV4 (Quadrivalent ) 0.5mL ([id number]) 08/25/2022,08/30/2017 Influenza, Unspecified Formulation 09/11/2018, MCV4 (Menactra) [...] this topic Medical Devices Implanted Type Area Terminal Operator Device Identifier Shelf Expiration Date Model / Serial / Lot Stent Ureteral Inlay 6fr 26cm - [id number] Implanted:Qty: 1 on 02/07/2018 by Mariya Avina MBBS at [facility] DEVICE Right: U[employer] 09/06/2022 [id number] / / [id number] Advance Directives Latest Code Status on File Code Status Date Activated Date Inactivated Comments Full Code 02/11/2018 2:27 PM 02/12/2018 6:34 PM Care Teams Livestock Nutritionist Relationship Specialty Start Date End Date No Primary/Referring, Ryany PCP - General 01/04/15
--- OUTSIDE RECORDS SUMMARY | 2024-01-09 08:02 | XMS_ITS | Encounter Summary ---
Author Name Unknown Organization [facility] Address [address], [place] [address] Care Team Providers Care Pull Through Hooker Name Role Phone No Primary/Referring, Phy Primary Care Provider Unavailable Reason for Referral * Procedure/Equipment (Routine) - Incomplete Specialty Diagnoses / Procedures Referred By Contac t Referred To Contact Diagnoses Encounter for supervision of other normal in second trimester Procedures OBGYN Second Trimester Ultrasound Patty Saavedra MD [address] [place] [address] Referral ID Status Reason Start Date Expiration Date V isits Requested Visits Authorized [id number] Incomplete 03/24/2023 06/22/2024 1 1 * Procedure/Equipment (Routine) - Incomplete Specialty Diagnoses / Procedures Referred By Contac t Referred To Contact Diagnoses Encounter for supervision of other normal in second trimester Procedures OBGYN Second Trimester Ultrasound Patty Saavedra MD [address] [place] [address] Referral ID Status Reason Start Date Expiration Date V isits Requested Visits Authorized [id number] Incomplete 03/24/2023 06/22/2024 1 1 Reason for Visit * Reason Comments Ob Exam, Initial Encounter Details Date Type Department Care Team Description 03/24/2023 2:20 PM CDT Initial [facility] [address] [place] [address] Patty Saavedra MD [address] [place] [address] Ob Exam, Initial Social History Tobacco Use [...] is a 27 y.o. @ 17w6d by [facility] 08/26/23 who presents for a transfer of care visit. 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 [address] Dept Dept Patient Information ?Name: Chelly Becker ??: 1995 (27 y.o.) (F) BMI: None Date: 04/05/2023 9:30 AM Performed By ?? Creative Designer(s) initials: KW Attending: Claudine Anthony MD Referred [...] regular 4 [place] appears normal Cardiac [place] appears normal LVOT/AO appears normal RVOT/PA appears [...] appears normal Left Foot appears normal ? Creative Designer Comments GA by Ultrasound is 20w3d +/- 10 days. (ANABEL by Ultrasound is 08/20/23) Clinical ANABEL Estimated Date of Delivery: 08/26/23 (by LMP 11/19/22) = 19w4d Patient did not have first trimester aneuploidy screening. Transfer of care. Patient reports early US ~9w gestation, ANABEL based on LMP, measuring 1 day different at [address] [place] [address] US. Impression anatomy screen is complete and [...] ?? Claudine Anthony MD Patty Saavedra MD [facility] documented in this encounter Visit Diagnoses Diagnosis Encounter for supervision of other normal in second trimester- Primary History of delivery Other postprocedural status History of depression Personal history of other mental disorder Encounter for supervision of other normal in second trimester documented in this encounter Care Teams Pull Through Hooker Relationship Specialty Start Date End Date No Primary/Referring, Phy PCP - General 01/04/15 documented as of this encounter
--- OUTSIDE RECORDS SUMMARY | 2024-01-09 08:02 | XMS_ITS | Clinical Summary ---
Author Name Unknown Organization [facility] Address [place], [place] [address] Care Team Providers Care Vending Service Technician Name Role Phone Leida Sen [facility] Primary Care Provider [phone] Allergies Active Allergy Reactions Criticality Noted Date [...] 7:48 PM 07/12/2015 7:25 PM Care Teams Vending Service Technician Relationship Specialty Start Date End Date Leida Sen CNM [address] [place] [address] PCP - General Certified Nurse Customer Service Attendant 05/18/21
--- OUTSIDE RECORDS SUMMARY | 2024-01-09 08:02 | XMS_ITS | Encounter Summary ---
Author Name Unknown Organization [facility] Address [address] [place] [address] Care Team Providers Care Nps Name Role Phone No Primary/Referring, Phy Primary Care Provider Unavailable Reason for Visit * Procedure/Equipment (Routine) - Incomplete Specialty Diagnoses / Procedures Referred By Wanda t Referred To Contact Diagnoses Encounter for supervision of other normal in second trimester Procedures OBGYN Second Trimester Ultrasound Patty Saavedra MD [address] [place] [address] Referral ID Status Reason Start Date Expiration Date V isits Requested Visits Authorized [id number] Incomplete 03/24/2023 06/22/2024 1 1 Encounter Details Date Type Department Care Team Description 04/05/2023 8:20 AM CDT Office Visit [facility] Ultrasound [place] [address] [place] [address] Patty Saavedra MD [address] [place] [address] Encounter for supervision of other normal in [...] ??Chelly Becker ??Obstetrics Report Date: 04/05/2023 ?? [place] employment attorney Ultrasound [address] [place] [address] Dept Dept Patient Information ?Name: Chelly Becker ??: 1995 (27 y.o.) (F) BMI: None Date: 04/05/2023 9:30 AM Performed By ?? Traffic Rate Computer(s) initials: KW Attending: Claudine Anthony MD Referred [...] regular 4 [place] appears normal Cardiac [place] appears normal LVOT/AO appears normal RVOT/PA appears [...] appears normal Left Foot appears normal ? Traffic Rate Computer Comments GA by Ultrasound is 20w3d +/- [...] ?? Claudine Anthony MD Patty Saavedra MD [facility] documented in this encounter Visit Diagnoses Diagnosis Encounter for supervision of other normal in second trimester documented in this encounter Care Teams Nps Relationship Specialty Start Date End Date No Primary/Referring, Phy PCP - General 01/04/15 documented as of this encounter
--- OUTSIDE RECORDS SUMMARY | 2024-01-09 08:02 | XMS_ITS | Encounter Summary ---
Author Name Unknown Organization [facility] Address [address], [place] [address] Care Team Providers Care Grape Picker Name Role Phone No Primary/Referring, Phy Primary Care Provider Unavailable Encounter Details Date Type Department Care Team Description 03/24/2023 Notes/Orders [facility] [address] [place] [address] Letitia Meza LPN Patient counseled (Primary Dx) [...] Primary documented in this encounter Care Teams Grape Picker Relationship Specialty Start Date End Date No Primary/Referring, Alfredo PCP - General 01/04/15 documented as of this encounter
== END 2024-01-09 07:54 | disposition home or self-care (01) ==
LOC: RAD 07:54
PROVIDERS: PCP Nurse Practitioner Family; Visit Provider Physician Assistant
DX: T83.32XA Displacement of intrauterine contraceptive device, initial encounter (principal)
CPT/HCPCS: 74018

== ENCOUNTER 2024-01-26 07:06 | Day surgery (SDC) | payer OTHER, SELFPAY ==
[2024-01-26] VITALS (14 sets, daily range): BP systolic 95–115; BP diastolic 60–77; PULSE 59–86; RESP 14–16; TEMP 35.9–36.8; O2SAT 95–100; BMI 23.9
[2024-01-26 07:21] LABS: Ur HCG Qualitative* Negative (Negative)
[2024-01-26] MEDS: SODIUM CHLORIDE 0.9 % (FLUSH) 10 ML SYRINGE IVF (07:30)
[2024-01-26] MEDS: LACTATED RINGERS 1000 ML 1,000 ML 100 ML IV ×2 (07:30→10:43)
[2024-01-26 07:38] LABS: Hemoglobin* 13.3 gm/dL (12.0-16.0)
--- NOTE | 2024-01-26 07:48 | W.PM.H&PU ---
History & Physical Update History & Physical Update H&P Reviewed and patient assessed: No changes noted
[2024-01-26] MEDS: BUPIVACAINE 0.5% 30 ML INJECTION (08:47)
[2024-01-26] MEDS: CEFAZOLIN 2 GM INJ IVP (09:42)
--- NOTE | 2024-01-26 11:16 | W.ANESCHARGE ---
Anesthesia Charges Start Date/Time Anesthesia Start Date: 01/26/24 Anesthesia Start Time: 08:22 Stop Date/Time Anesthesia Stop Date: 01/26/24 Anesthesia Stop Time: 11:13
[2024-01-26] MEDS: fentaNYL 100 MCG/2 ML inj 50 MCG IVP ×2 (11:20→11:35)
--- NOTE | 2024-01-26 11:20 | W.ANESCHARGE ---
Anesthesia Charges Start Date/Time Anesthesia Start Date: 01/26/24 Anesthesia Start Time: 08:22 Stop Date/Time Anesthesia Stop Date: 01/26/24 Anesthesia Stop Time: 11:13
--- NOTE | 2024-01-26 11:21 | P.NB_ITS ---
Nerve Block Nerve Block Time Seen by Provider: 11:04 Date Seen: 01/26/24 Type of block requested by surgeon for post-operative analgesia: TAP Side: bilateral Time out performed: Yes Verification of patient name: Yes Verification of date of : Yes Site marking: site marked Name of person performing procedure: Reynold Continuous monitoring Was continuous monitoring of O2 sat, B/P, registered nurse cardiac, recorded every 15 minutes?: Yes Procedure Checklist: sterile prep, needles and gloves Ultrasound guided. Images saved: Yes Medications given in 5ml increments after negative aspiration: Marcaine %: 0.25 mL: 30 Needle gauge: 20 and Exparel mL: 10 Patient tolerated procedure well: Yes Additional comments: Needle noted between internal oblique and transversus abdominus. Local spread visualized Block Charges Block Charge (with Pro Fee): TAP Bilateral Use of Ultrasound Machine for Block: Yes- US Guidance/pain block
--- NOTE | 2024-01-26 11:21 | W.PM.GYNPROC ---
Procedure Note Date of procedure: 01/26/24 Pre-op diagnosis: Pelvic IUD, Family Planning Post-op diagnosis: same Procedure: Failed laparoscopy converted to laparotomy, removal of pelvic IUD, bilateral salpingectomy. Anesthesia: GETA Complications: Inability to enter peritoneal cavity with laparoscope, need to convert to laparotomy Surgeon: Roslyn Villanueva MD [employer] Operator: Josie Palacios Estimated blood loss (mL): 20 IV fluids (mL): 1,200 Pathology: specimen obtained, sent to pathology (bilateral fallopian tubes) Condition: stable Disposition: floor Findings: Normal external genitalia, speculum exam grossly normal cervix. Intra abdominal survey: Uterus of about 9cm, grossly normal bilateral fallopian tubes and ovaries, right fundal perforation site noted, lower uterine segment adhesion to the bladder. Mirena IUD and strings noted at the posterior cul de sac, intact and not adhered to any structures. Normal appendix, grossly normal intestines. Evidence of gas in the retroperitoneum of the right paracolic gutter, similar on the left side. Parietal peritoneum was extensively explored and no openings were noted. Insufflation was all preperitoneal, this also explains retroperitoneal insufflation/gas evident intra abdominally. Procedure Description: Patient was taken to the OR with IV fluid running and pneumatic compression stockings applied to the lower extremities. General anesthesia was obtained without difficulty. The patient was placed in the dorsal lithotomy position with Wes type stirrups with knee bent at 30 degree angles. Patient was prepared and draped under usual sterile technique. Examination under anesthesia as above. The bladder was emptied and Moreno catheter placed. Speculum was placed in the vagina. The anterior lip of the cervix was grasped with a single-tooth tenaculum. Uterine manipulator was introduced. Two Allis clamps were applied to the periumbilical skin for manual elevation of the abdomen. A vertical skin incision was made in the umbilical fold. 5 mm Optiview trocar introduced but I was unable to identify intraperitoneal placement. I then decided to extend the incision and proceed with a Janessa technique and the fascia was identified and grasped with Gene and I was able to open fascia and identify peritoneal layer that looked thick and yellowish as in fatty tissue. I then introduced a Claudine forceps and attempted to grasp peritoneum to find an area to open, during these attempts I started to be concerned about a bowel adhesion to the umbilicus and attempts discontinued. I then asked anesthesia for placement of a orogastric tube and proceeded to place a 5mm Optiview trocar through Crain's point. I knew I had passed fascia and my trocar was inserted more than 4-5cm but I was unable to visualize intraperitoneal organs and I discontinued my attempts and decided that to be able to safely complete surgery I would need to open the abdomen. A Pfannenstiel skin incision was made with a scalpel above previous section incision. This incision was carried down to the underlying layer of fascia with the Bovie and scalpel. The fascia was incised in the midline and the incision extended laterally. The superior and inferior aspects of the fascial incision were grasped with Gene clamps, elevated and the underlying rectus muscles dissected off sharply with curved Anglin scissors. The rectus muscles were then in the midline utilizing Metzenbaum. Midline the peritoneal layer was evaluated to be thicker at the level of the umbilicus with associated fatty tissue. Attempts made to open peritoneum midline and this was unsuccessful, super stretchy peritoneum, the peritoneum was opened finally towards the left of midline and access to intraabdominal cavity achieved. I was then able to palpate and visualize the parietal peritoneal layer and this was intact. There was evidence of retroperitoneal gas as described above and we asked for general surgery opinion to discuss theory that preperitoneal insufflation had reached the retroperitoneal space. Trendelenburg position obtained, an Deep O retractor was then placed into the incision and the bowel was packed away. This allowed great visualization of the pelvis. IUD was found in the posterior cul de sac and was not attached to any structures. Easily and completely removed from pelvis. The left fallopian tube was elevated away from the pelvic sidewall with 2 Ryan clamps and utilizing Thunderbeat bipolar energy mesosalpinx was serially coagulated and cut until cornual region. Hemostasis was achieved. Same procedure performed on right fallopian tube. Hemostasis secured. Both fallopian tubes sent to pathology. Abdomen and pelvis were thoroughly inspected. Good hemostasis was noted at resection sites. All instruments and retractors were removed. The subfascial tissues were carefully inspected and hemostasis assured. Peritoneal layer approximated with Vicryl 3-0 in a continuous fashion. The fascia was reapproximated in a running fashion with a looped 0 PDS suture. The subcutaneous tissues were inspected irrigated and hemostasis was assured. The subcutaneous fat layer was reapproximated with continuous sutures of 2-0 PDS. Keloid from previous incision was removed with scalpel and skin was skin was closed in a subcuticular fashion with 4-0 Monocryl. The fascia of the umbilical incision was approximated with 0 looped PDS in a figure of 8 manner. Subcutaneous tissue approximated with 2-0 PDS and all skin incisions were approximated with 4-0 Monocryl. LiquiBand and dressing were applied. The patient tolerated the procedure well. Sponge, lap, needle, and instrument counts were reported as correct x2. The patient was taken to the recovery room, awake, and in stable condition. She did receive 2 grams of IV Ancef at the start of laparotomy. Moreno catheter left in place, uterine manipulator was removed and speculum exam revealed no persistent bleeding, no abnormal discharge.
[2024-01-26] MEDS: HYDROmorphone 0.5 mg/0.5 ml inj IVP (12:24)
[2024-01-26] MEDS: OXYCODONE 5 MG TABLET PO (14:01)
[2024-01-26] MEDS: ACETAMINOPHEN 325 MG TABLET 1000 MG PO (14:55)
[2024-01-26] MEDS: IBUPROFEN 600 MG TABLET PO (16:41)
[2024-01-26] MEDS: SIMETHICONE 80 MG TAB.CHEW 160 MG PO (16:41)
[2024-01-26] MEDS: ONDANSETRON 2 MG/ML inj 4 MG IVP (17:00)
--- NOTE | 2024-01-26 19:33 | PC.NURSE ---
The patient arrived to med surg @1145 AFTER procedure to remove IUD. The patient reported moderate pain in lower abdomen @ 5/10... relieved with administration of tylenol, and ibu and oxy. The patient reported feeling nauseous after drinking fluids. Zofran was given. The patients Moreno was removed and the patient voided 50 after removal. Ambulated in the halls prior to discharge. IV was removed and the patient was educated regarding follow up. Inocencia BHARDWAJ BSN
== END 2024-01-26 17:51 | disposition home or self-care (01) ==
LOC: OR 07:48 → MEDSURG 13:06
PROVIDERS: PCP Nurse Practitioner Family; Visit Provider Obstetrics & Gynecology
PROC: (CPT 58661; principal; 2024-01-26 08:15)
DX: Z30.2 Encounter for sterilization (principal); T83.32XA Displacement of intrauterine contraceptive device, initial encounter; Z53.31 Laparoscopic surgical procedure converted to open procedure; G89.18 Other acute postprocedural pain
CPT/HCPCS: 58301; 58600; 00840; 00851; 36415; 64488; 76942; 81025; 85018; 88302; A9270; C9290; J0330; J0665; J0690; J1100; J1170; J1885; J2250; J2371; J2405; J2704; J2710; J3010; J7120

== ENCOUNTER 2024-02-01 14:36 | Outpatient (CLI) | payer OTHER, SELFPAY | END 2024-02-01 14:37 | disposition home or self-care (01) | LOC: NFLDREF 02-15 10:34 | PROVIDERS: PCP Nurse Practitioner Family; Referring Provider Nurse Practitioner Family; Visit Provider Obstetrics & Gynecology | DX: R30.9 Painful micturition, unspecified (principal) | CPT/HCPCS: 87086 ==

== ENCOUNTER 2024-04-30 15:37 | Outpatient (CLI) | payer OTHER, SELFPAY ==
--- OUTSIDE RECORDS SUMMARY | 2024-04-30 15:41 | XMS_ITS | Clinical Summary ---
Author Organization [facility] Address [place], [place] [address] Care Team Providers Care [employer] Professional Name Role Phone Ivon Ernst PA-C Primary Care Provider [phone] Allergies Active Allergy Reactions Criticality Noted Date Comments Levofloxacin Rash,Itching Unknown 07/10/2015 Per ER Nursing notification. Medications Medication Sig Dispensed Refills Start Date End Date Status PNV/ferrous sulfate/folic acid ( MULTIVIT WITH IRON ORAL) Take by mouth. Activ e calcium phosphate dibas/vit D3 (VITAMIN D, WITH CALCIUM, ORAL) Take by mouth. A ctive Active Problems Problem Noted Date Diagnosed Date History of depression 07/30/2021 arrhythmia affecting , antepartum 05/18/2021 Resolved Problems Problem Noted Date Diagnosed Date Resolved Date UTI (urinary tract infection) 07/11/2015 07/29/2021 Severe sepsis without septic shock 07/11/2015 07/29/2021 Encounters Date Type Department Care Team Description 04/18/[address] [facility] [address] [place] [address] Leslie Ford, , CGC Results (Cancer genetic testing) 04/10/2024 2:45 PM CDT Orders Only [facility] [address] [place] [address] Lab, [place] [facility] (Cancer Genetic Kit) 04/10/2024 Travel 03/29/2024 10:30 AM CDT Telemedicine [facility] [address] [place] [address] Lazara Johnston MS, CGC Counseling (Cancer genetic counseling); Telehealth 03/15/[address] [facility] [address] [place], [place] [id number] Li Helms Cancer Genetics from Last 3 Months Family History Medical History Relation Name Comments [...] 0 0 Date Outcome GA Total Labor Labor//3rd Weight Sex Delivery Anes PTL [place] A1 [...] age 18+ 2013 Hepatitis C screening for age 18-79 2013 Tetanus booster 2015 Influenza for age 9-49 07/29/2024 Pap test for age 21-65 09/14/2026 3, 09/14/2023, 01/24/2023, Additional history exists COVID-19 vaccine series Completed 09/01/20 23, 08/25/2022, 09/22/2021 Pneumococcal series for age 6-64 Aged Out No longer eligible based on patient's age to complete this topic Procedures Procedure Name Priority Date/Time Associated Diagnosis Comments HPV THIN PREP Routine 09/14/2023 12:00 PM CDT from Last 3 Months or Most Recently Relevant to Health Maintenance Results * HPV HIGH RISK (09/14/2023 12:00 PM CDT) TYPE 16 Negative Negative 09/20/2023 1:47 PM CDT [facility] TYPE 18 Negative Negative 09/20/2023 1:47 PM CDT [facility] OTHER HIGH RISK TYPES Negative Negative 09/20/2023 1:47 PM CDT [facility] Other (Cervical) 09/14/2023 12:00 PM CDT 09/16/2023 3:09 PM CDT Narrative [facility] - 09/20/2023 1:47 PM CDT HPV types 16, 18, 31, 33, 35, 39, 45, 51, 52, 56, 58, 59, 66 and 68 DNA were undetectable or below the pre-set threshold. Methodology: Jonah Killian 4800 HPV Test Leida BRENNAN MICROBIOLOGY [facility] [address] [place] [address], from Last 3 Months or Most Recently Relevant to Health Maintenance Advance Directives * Full Code (Latest Code Status on File) Date Activated Date Inactivated Comments 07/29/2021 5:11 PM 07/30/2021 4:39 PM Question Answer Comments Code Status Discussion: Not Discussed * Full Code Date Activated Date Inactivated Comments 07/10/2015 7:48 PM 07/12/2015 7:25 PM Care Teams [employer] Professional Relationship Specialty Start Date End Date Ivon Ernst PA-C [address] [place] [address] PCP - General Emergency Medicine 03/28/24
--- OUTSIDE RECORDS SUMMARY | 2024-04-30 15:41 | XMS_ITS | Clinical Summary ---
Author Organization [facility] Address [address] [place] [address] Care Team Providers Care Claims Vice President Name Role Phone No Primary/Referring, Phy Primary Care Provider Unavailable Source Comments You are receiving this document as you are listed as the primary care provider,follow-up provider, or the patient has been referred to you for consultation.This is in compliance with the Medicare and[facility] EHR Incentive Program,which states Providers who transition their patient to another setting of careor provider of care or refers their patient to another provider of care shouldprovide summary care record for each transition of care or referral. [facility] Allergies Active Allergy Reactions Criticality Noted Date Comments Levofloxacin Other, see comments 11/24/2017 Given iv and redness of veins as it infused, Medications Medication Sig Dispensed Refills Start Date End Date Status acetaminophen (TYLENOL) 500 MG tablet Take 2 Tablets (1,000 mg) by mouth every 6 hours as needed for Pain. Maximum acetaminophen dose is 4000 mg in 24 hours Active aspirin 81 MG chewable tablet Chew and swallow 1 Tablet (81 mg) by mouth daily. Active vitamin-ferrous fumarate-folic acid (PRENATALPLUS) 27-1 MG tablet Take 1 Tablet by mouth daily. Active docusate sodium (AKA COLACE) 50 MG capsule Take 1 Capsule (50 mg) by mouth two times a day. Active Active Problems Problem Noted Date Diagnosed Date Ovarian cyst, right 01/19/2018 Right ureteral stone 01/13/2018 Overview: Added automatically from request for surgery [id number] Resolved Problems Problem Noted Date Diagnosed Date Resolved Date History of depression 07/30/20212022 arrhythmia affecting p regnancy, antepartum 05/18/2021 03/24/2023 Moderate episode of recurren t major depressive disorder 08/24/2018 03/24/2023 Encounters Date Type Department Care Team Description 03/16/2024 windy Lewis [phone] from Last 3 Months Immunizations Name Administration Dates Next Due DTP 01/09/2001, 7,03/22/1996,1995,1995 Flu Vac Preserv Free (3+yrs) 08/21/2015 Flublok (RIV4) 08/29/2019 Fluzone Qiv Multidose Vial 0 .25 (6-35 Mos) 09/22/2021 HepB, Unspecified Formulation 07/24/1996, 996,01/26/1996 Hib, Unspecified Formulation 03/22/1996, 96,1995 Influenza IIV4 (Quadrivalent ) 0.5mL (58160) 08/25/2022,08/30/2017 Influenza, Unspecified Formulation 09/11/2018, MCV4 (Menactra) [...] 08/25/2022, 09/22/2021, 12/09/2020, Additional history exists Influenza (Season Ended) 2024 022, 09/22/2021, 08/29/2019, Additional history exists DTaP/Tdap/Td (9 - Tdap) 06/20/2033 06/20/20 23, 06/16/2021, 06/10/2015, Additional history exists Zoster/Shingles (1 of 2) [...] this topic Medical Devices Implanted Type Area Certified Lactation Educator Device Identifier Shelf Expiration Date Model / Serial / Lot Stent Ureteral Inlay 6fr 26cm - [id number] Implanted:Qty: 1 on 02/07/2018 by Mariya Avina MBBS at [facility] DEVICE Right: [employer] 09/06/2022 [id number] / / [id number] Advance Directives * Full Code (Latest Code Status on File) Date Activated Date Inactivated Comments 02/11/2018 2:27 PM 02/12/2018 6:34 PM Care Teams Claims Vice President Relationship Specialty Start Date End Date No Primary/Referring, Alfredo PCP - General 01/04/15
--- OUTSIDE RECORDS SUMMARY | 2024-04-30 15:41 | XMS_ITS | Encounter Summary ---
Author Organization [facility] Address [address] [address] Care Team Providers Care Press Feeder Name Role Phone No Primary/Referring, Phy Primary Care Provider Unavailable Encounter Details Date Type Department Care Team (Late st Contact Info) Description 03/16/2024 emma Lewis [phone] Social History Tobacco Use Types Packs/Day Years [...] on file documented as of this encounter Progress Notes * EMMA SUN PROVIDER - 03/21/2024 2:05 PM CDT Emma Addendum Treatment Plan Diagnosis Sinusitis with Ear Pain Visit Date March 16, 2024 Addendum Date March 21, 2024 Chelly Becker Date of : 89 Provider Cristy Parekh, Physician [employer] Supervisor Note From Provider Castillo Spaulding, thanks for reaching back to update me on your worsening sinus pain. I am sending an antibiotic for a bacterial sinus infection based on what you shared. I am happy to hear your ear pain is improving. I would continue the flonase nasal steroid spray for at least another week or so. Continue with ibuprofen as needed, I also recommend adding plain mucinex but avoid any decongestants now atthis phase in your illness. This antibiotic is safe for . I hope you are doing better soon! Sincerely, GENEVA Muniz Treatment Plan Since you have a bacterial infection, let?? try an antibiotic. I??e also included a prescription nasal steroid to reduce your pain and inflammation. The antibiotic and nasal steroid will work effectively on both your sinus and ear symptoms. I sent your prescriptions to [facility]. I??e also listed a few self-care tips to reduce inflammation and soothe your symptoms while the antibiotic kills the bacteria. If your symptoms don?? improve after 4 days, or if you have questions, please select Help to Request a Follow-up and we??l adjust your treatment for free. Order(s) fluticasone propionate 50 mcg/actuation spray,suspension [place] 1-2 spray into both nostrils once a day as directed Note: Refills: 2 amoxicillin-pot clavulanate 875-125 mg tablet Take 1 tablet oral twice a day for 7 days Note: Refills: None Sent To: [place] [address] Treatment Plan Self Care Tip Topics Ease Sinus Inflammation and Ear Pain with Nasal Steroids Inflammation Relief with Ibuprofen What to Expect Our goal is to treat the infection and reduce inflammation in order to promote drainage to ease your sinus and ear pain. Reducing inflammation will make you feel better quickly. If you follow the recommendations I made in the Treatment section, your symptoms should begin to improve in 4 days of following this treatment plan. If your symptoms haven?? improved after 4 days, select Help to Request aFollow-up and we??l discuss next steps. What to Watch Out For Give us a call immediately if you experience: ??? Vision changes ??? Redness and swelling of the eyes or face ??? Increasing congestion ??? Worsening pain ??? High fevers ??? Persistent or worsening ear pain ??? Bloody or foul-smelling ear drainage ??? Skull pain behind your ear ??? Hearing loss ??? Difficulty swallowing My Conditions, Orders, Allergies as of March 21, 2024 Standard condition list None Current orders amoxicillin-pot clavulanate (amoxicillin-pot clavulanate) fluticasone propionate (fluticasone propionate) Allergies levofloxacin (levofloxacin), IV [facility] Information [facility] [employer] We are an online clinic open 20/06. If you have any questions or comments about this visit, please call or email [email or web address] * FAMILY MEDICINEEMMA PROVIDER - 03/17/2024 7:19 AM CDT Emma Addendum From Provider Visit Date March 16, 2024 Addendum Date March 17, 2024 Chelly Becker Date of : 89 Provider Carrie Borjas, Nurse Practitioner Note From Provider Castillo Spaulding,Thank you for reaching out! I am sorry right ear has been more bothersome! Let's adjust a few things and reevaluate over the next 24-48 hours! Try taking the ibuprofen with food to see if that might help avoid stomach pain! Ibuprofen will better manage ear pain than Tylenol, however not worth trading ear pain for stomach pain! Get the Flonase nasal spray started! This will relieve sinus inflammation and keep ear tubes open and draining! Use the Afrin nasal spray twice daily for three days! This will relieve sinus/ear congestion! Reminder to tilt chin towards chest and then spray up into each nostril! Use Claritin once daily to help relieve underlying congestion! These recommended tr eatments are a category B and safe to use while ! Continue other suggested recommendations in your treatment plan to help relieve ear pain! Prop head up when lying down to keep drainage going down! Use hot showers to open sinuses and clear out thick nasal discharge! Continue to get some extra rest and push fluids! If symptoms do not improve as expected to please Request a follow up!Take care and keep us postedCarrie * EMMA SUN PROVIDER - 03/16/2024 6:41 PM CDT Emma Treatment Plan Diagnosis Ear Pain Related to Eustachian Tube Dysfunction Visit Date March 16, 2024 Chlely Jiménez Date of : 89 Provider Myrna Stuart, Nurse Practitioner Note From Provider Gunner Spaulding, Your symptoms are consistent with eustachian tube dysfunction - which often occurs during or after a cold or allergies and causes the eustachian tube in your inner ear to become blocked and inflamed. This leads to the plugged or pressure sensation that you may be feeling in your ears. I sent a prescription for a nasal spray to your pharmacy to help reduce inflammation and relieve thediscomfort in your ears. In addition, take ibuprofen (600-800mg every 8 hours) for 2-3 days. Pleaseread the treatment plan I??e put together for you below for additional care instructions. All medications/prescriptions are safe to use while . Keep following the plan -- it can take several days to weeks for these symptoms to fully improve. Take good care, DIAZ Norris. Treatment Plan I sent a prescription to [facility] for a nasal steroid that should help open up your Eustachian tubes,reduce swelling and improve your ear pain. This medication is also available [id number], so you may wantto check with your pharmacy to see which option is more cost-friendly.I also listed a few ways to soothe your discomfort and additional self-care tips to help you feel better.If your symptoms don't start to improve after 7 days, or if you have questions, select [facility] Request a Follow-up and we'll adjust your treatment for free. Order(s) fluticasone propionate 50 mcg/actuation spray,suspension [place] 1-2 spray into both nostrils once a day as directed Note: Refills: 2 Sent To: [address] [address] Treatment Plan Self Care Tip Topics Warm Packs Reduce Ear Pain with a Nasal Steroid [place] Inflammation & Pain Relief with Ibuprofen Elevate Your Head What to Expect If you follow the recommendations I made on the Treatment tab, your symptoms should start to improve inabout 1 week. If your symptoms don't start to improve after 7 days, or if you have questions,select Help to Request a Follow-up and we'll adjust your treatment for free. What to Watch Out For Give us a call if you experience: ??? Bloody or foul-smelling ear drainage ??? Fever ??? Ear pain lasting more than 3 days ??? Increasing congestion ??? Pain and pressure in the face My Conditions, Orders, Allergies as of March 16, 2024 Standard condition list None Current orders fluticasone propionate (fluticasone propionate) Allergies levofloxacin (levofloxacin), IV [facility] Information [facility] [employer] We are an online clinic open 20/06. If you have any questions or comments about this visit, please call or email [email or web address] documented in this encounter Plan of Treatment Not on file documented as of this encounter Visit Diagnoses Diagnosis Other specified disorders of Eustachian tube, unspecified ear Acute sinusitis, unspecified documented in this encounter Care Teams Press Feeder Relationship Specialty Start Date End Date No Primary/Referring, Phy PCP - General 01/04/15 documented as of this encounter
== END 2024-04-30 15:38 | disposition home or self-care (01) ==
LOC: NFLDREF 15:38
PROVIDERS: PCP Nurse Practitioner Family; Visit Provider Registered Nurse
DX: R10.84 Generalized abdominal pain (principal)
CPT/HCPCS: 80048; 87086